=== PATIENT | male | born 1965 | race Native Hawaiian/Other Pacific Islander ===

== ENCOUNTER 2021-09-29 07:57 | Outpatient (REF) | payer MEDICAID, SELFPAY ==
--- NOTE | ~2021-09-29 | XR_ITS ---
EXAMINATION: XR KNEE, LEFT CLINICAL INFORMATION: Pain COMPARISON: None TECHNIQUE: Four views of the left knee. FINDINGS: The patella is well seated.. Mild patellofemoral spurring. No significant joint effusion. Mild spurring in the tibial spines. The medial lateral joint spaces are fairly well-preserved. XR/XR knee LT 4V IMPRESSION: Mild degenerative changes. No acute finding.
== END 2021-09-29 07:58 | disposition home or self-care (01) ==
LOC: HO.XRAY 07:57
PROVIDERS: Visit Provider Emergency Medicine
DX: M25.562 Pain in left knee (principal)
CPT/HCPCS: 73564

== ENCOUNTER 2021-11-11 07:08 | Outpatient (REF) | payer MEDICAID, SELFPAY ==
--- NOTE | ~2021-11-11 | XR_ITS ---
EXAMINATION: XR KNEE AP STANDING CLINICAL INFORMATION: Pain in knee. COMPARISON: None TECHNIQUE: AP bilateral standing view of the knees was obtained. FINDINGS: There is mild reduction in bilateral medial compartment joint space. The lateral compartment joint space is maintained normal. No bony erosive changes. There are no loose bodies. There is no abnormal soft tissue swelling. XR/XR knee standing BI IMPRESSION: Mild degenerative changes medial compartment both knees.
== END 2021-11-11 07:09 | disposition home or self-care (01) ==
LOC: HO.HOSX 07:08
PROVIDERS: Visit Provider Physician Assistant
DX: M54.16 Radiculopathy, lumbar region (principal); M25.561 Pain in right knee; M25.562 Pain in left knee
CPT/HCPCS: 73565; 99202

== ENCOUNTER → 2021-12-12 10:19 | Outpatient (BNVA) | payer MEDICAID, SELFPAY | PROVIDERS: PCP Emergency Medicine; Visit Provider Internal Medicine | DX: M54.16 Radiculopathy, lumbar region (principal) | CPT/HCPCS: 99202 ==

== ENCOUNTER 2022-01-06 09:44 | Outpatient (REF) | payer MEDICAID, SELFPAY ==
--- NOTE | ~2022-01-06 | XR_ITS ---
EXAMINATION: XR LUMBOSACRAL SPINE WITH OBLIQUES CLINICAL INFORMATION: Low back pain and left-sided sciatica COMPARISON: None TECHNIQUE: AP, both oblique, and lateral views of the lumbar spine. Lateral view of the lumbosacral junction. FINDINGS: There is curvature of the proximal lumbar spine to the right and lower lumbar spine to the left. Bone alignment is otherwise normal. No fracture or dislocation is seen. There is degenerative disc disease at L1-L2 and L4-L5. There is lower lumbar spine facet arthritis. No pars defect is seen. XR/XR lumbar spine 4V min IMPRESSION: Mild scoliosis and degenerative changes.
== END 2022-01-06 09:45 | disposition home or self-care (01) ==
LOC: HO.XRAY 09:44
PROVIDERS: PCP Internal Medicine; Visit Provider Internal Medicine
DX: M54.42 Lumbago with sciatica, left side (principal)
CPT/HCPCS: 72110

== ENCOUNTER 2022-01-23 09:00 | Outpatient (RCR) | payer MEDICAID, SELFPAY ==
[2021-12-30 10:09] VITALS: BP 157/87; PULSE 53
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
--- NOTE | 2022-02-06 12:40 | MHC.PT.DC ---
[facility] [place] Office [employer] Office [place] Office [address] Deonte Graham [address] [phone] F: [phone] F: [phone] F: [phone] F: [phone] Physical Therapy Discharge Report Diagnosis: RADICULOPATHY, LUMBAR REGION Date of Surgery: Date of Evaluation: 12/30/21 Date of Discharge: Treatments to Date: 4 Cancellations to Date: 2 No Shows to Date: 5 Discharge Status: Recommend MD Follow-up Visit Non-compliance Discharge Summary: Pt LAST SEEN ON 01/23/22. PER ASSESSMENT AT THAT SESSION :SOME SHAKING WITH ATTEMPT AT EXS (?), QUESTIONABLE FULL EFFORT WITH THEREX (WHILE PERFORMING R [place] SEEMED TO STRUGGLE UNTIL ASKED IF THIS WAS HIS GOOD SIDE (THEN PERFORMED WITH GREATER EASE). REPORTS CONTINUED PAIN L HIP AREA AFTER SESSION (MAYBE A LITTLE WORSE..ED RE MH/ICE). Pt HAD BEEN MOVING FROM [place] TO [place] SO HAD MISSED APPTS, THEN CANCELLED AFTER INJECTIONS BECAUSE OF INCREASE IN PAIN. MULTIPLE NO SHOWS. HAD BEGUN HOME EXERCISE PROGRAM WITH LIMITED BENEFIT Electronically signed by: RIGO VERDUGO PT Please sign and return to therapist. Thank you for your referral.
== END 2022-02-06 12:40 | disposition home or self-care (01) ==
LOC: HO.PT 09:00
PROVIDERS: PCP Emergency Medicine; Visit Provider Internal Medicine
DX: M54.16 Radiculopathy, lumbar region (principal)
CPT/HCPCS: 97110; 97140; 97162; 97530; 97535

== ENCOUNTER 2022-04-01 07:42 | Emergency (ER) | payer MEDICAID, SELFPAY ==
[2022-04-01 07:54] VITALS: BP 156/80; BP 166/76; PULSE 58; PULSE 76; RESP 16; TEMP 36.6; O2SAT 100; O2SAT 98; BMI 25.7
--- NOTE | 2022-04-01 08:07 | ED_ITS ---
HPI - General Adult General Chief complaint: Back Pain/Injury Stated complaint: backpain x 2yrs Time Seen by Provider: 04/01/22 07:48 Source: patient Mode of arrival: ambulatory Limitations: no limitations History of Present Illness HPI narrative: Patient is a 56 year old male presenting to the emergency department today with chronic back pain. Patient states that he has had back pain for over 2 years now and is having a left sided flare that radiates down his left leg. Patient denies any dizziness, lightheadedness, abdominal pain, nausea, vomiting, fever, chills, blurry vision, double vision, loss of vision, chest pain, difficulty breathing, shortness of breath, night sweats, pain with urination, increased urinary frequency, increased urinary urgency, blood in his urine or stool, syncope or a near syncopal episode, recent trauma or falls, bowel incontinence, bladder incontinence, bowel retention, bladder retention, or any other complaints at this time. Onset (ago): year(s) Location: back Radiation: extremity (left leg) Severity: mild Severity scale (1-10): 2 Quality: dull Pain Consistency: intermittent Relieving factors: none Exacerbating factors: none Associated symptoms: denies other symptoms Treatments prior to arrival: none Related Data Home Medications Medication Instructions Recorded Confirmed ibuprofen 400 mg tablet 400 mg PO Q6H PRN pain 12/12/21 12/12/21 Previous Rx's Medication Instructions Recorded acetaminophen 500 mg tablet 1,000 mg PO Q8H PRN pain #90 tabs 12/12/21 Allergies Allergy/AdvReac Type Severity Reaction Status Date / Time No Known Allergies Allergy Verified 12/12/21 10:33 Review of Systems Constitutional: Constitutional: Reports no additional constitutional complaints, Denies chills, Denies fever(s) and Denies night sweats Eyes: Eyes: Reports no additional eye complaints, Denies blurry vision, Denies change in vision, Denies diplopia, Denies eye discharge, Denies loss of vision and Denies eye pain ENT: Denies dizziness Cardiovascular: Cardiovascular: Reports no additional cardiovascular complaints, Denies chest pain, Denies lightheadedness, Denies Loss of Consciousness and Denies dyspnea Respiratory: Respiratory: Reports no additional respiratory complaints and Denies dyspnea Gastrointestinal: Gastrointestinal: Reports no additional gastrointestinal complaints, Denies abdominal pain, Denies melena, Denies hematochezia, Denies change in bowel habits and Denies change in stool character Genitourinary: Genitourinary: Reports no additional male genitourinary complaints, Denies hematuria, Denies oliguria, Denies difficulty urinating, Denies dysuria, Denies urinary frequency, Denies urinary hesitancy, Denies urinary incontinence and Denies urinary urgency Musculoskeletal: Musculoskeletal: Reports no additional musculoskeletal complaints, Reports back pain, Denies numbness and Denies tingling Neurologic: Denies dizziness, Denies loss of vision, Denies numbness and Denies tingling Psychiatric: Psychiatric: Reports no additional psychiatric complaints Endocrine: Endocrine: Reports no additional endocrine complaints Hematologic/Lymphatic: Hematologic/Lymphatic: Reports no additional hematologic/lymphatic complaints Allergic/Immunologic: Allergic/Immunologic: Reports no additional allergic/immunologic complaints PMFSH Past Medical History Attestation statement: The following information was validated with the patient. Source: old records reviewed Medical History Hypertension Social History Social History Advance Directives: Yes Advance Directives Information Provided: Yes Advance Directives on File: No Current occupational status: unemployed Physical Exam ED Vital Signs: Vital Signs - 24 hr 04/01/22 07:54 Temperature 97.8 F Pulse Rate 58 Respiratory Rate 16 Blood Pressure 156/80 H Pulse Oximetry 98 Oxygen Delivery Method Room Air BMI result Body Mass Index 25.7 Const General: cooperative, no acute distress, alert and awake Nutritional Appearance: well nourished Orientation/consciousness: patient oriented x3 Limitations: no limitations [facility] Head: Yes normal to inspection and Yes atraumatic Ears: hearing grossly normal bilaterally and external ears normal General nose exam: Normal external nose present, no nasal discharge noted and no epistaxis Face and sinus: Yes normal facial exam, No abrasion and No laceration Mouth: Normal oral and palatal mucosa present, no drooling and no muffled voice Eyes General: appearance normal, both eyes and all related structures Periorbital: periorbital findings normal Eyelids: Yes eyelids normal Conjunctivae: conjunctivae normal Pupils: Equal, round and reactive pupils present EOM: EOMs intact bilaterally Neck Neck: Yes normal visual inspection, Yes full ROM and Yes no lymphadenopathy Chest Chest palpation & inspection: normal inspection of the chest Resp Effort & Inspection: normal respiratory effort and able to speak in complete sentences Auscultation: clear to auscultation bilaterally Cardio Rate: regular rate Rhythm: regular rhythm GI Inspection: Yes normal to inspection General: Yes no CVA tenderness Back/Spine/Pelvis Back: no CVA tenderness Cervical Spine: normal cervical lordosis and cervical ROM normal Thoracic/Lumbar Spine: thoracic and lumbar spine normal to inspection and thoraco-lumbar ROM normal Neuro General: patient oriented x3 and moves all extremities Cranial nerves: Yes Equal, round and reactive pupils present Cognition (Neuro): normal cognition Motor exam (neuro): 5/5 motor strength present throughout Sensory Exam: Normal double simultaneous stimulation for sensation Coordination: ktbxfd-oj-zorq test normal Extrem General: Yes normal to inspection, Yes full ROM and Yes capillary refill normal Psych Appearance: grossly normal Mental Status: mental status grossly normal Affect: normal affect Attitude: cooperative Thought process: Normal thought process present Thought content: Normal thought content present Insight: Good insight present (Psych) Medical Decision Making MDM Narrative Medical decision making narrative: Patient is a 56 year old male presenting to the emergency department today with chronic back pain. Patient's physical exam was unremarkable. I explained my physical exam findings to the patient. I answered all questions asked by the patient. Patient received IM Toradol and PO Flexeril which he stated helped his symptoms significantly. I stressed the importance of the patient taking his medi cation as prescribed. I stressed the importance of the patient following up with his primary care provider. I stressed the importance of the patient returning to the emergency department immediately if his symptoms were to worsen or if he were to develop any dizziness, shortness of breath, difficulty breathing, chest pain, blurry vision, loss of vision, nausea, vomiting, abdominal pain, fever, chills, back pain, or any other complaints. Patient verbalized agreement and understanding with this treatment plan and discharge. Differential Diagnosis Differential Diagnosis: back pain, chronic back pain, sciatic nerve pain Medical Records Medical records reviewed: Yes I reviewed the patient's medical records. Discharge Plan Discharge Clinical Impression: Sciatica Patient Disposition: Home, Self-Care Instructions: Chronic Back Pain (DC) Additional Instructions: Follow up with your primary care provider. Return to the emergency department immediately if your symptoms worsen or if you develop any dizziness, shortness of breath, difficulty breathing, chest pain, blurry vision, loss of vision, nausea, vomiting, abdominal pain, fever, chills, back pain, or any other complaints. Prescriptions: No Action ibuprofen 400 mg tablet 400 mg PO Q6H PRN (Reason: pain) acetaminophen 500 mg tablet 1,000 mg PO Q8H PRN (Reason: pain) Qty: 90 6RF Referrals: [facility] [Provider Group] Jaocb Conn MD [Primary Care Provider] - Print Language: Turkmen
[2022-04-01] MEDS: Lidocaine 4 % Patch ADH..PATCH 1 PATCH TRANSDERMA (08:08)
[2022-04-01] MEDS: Cyclobenzaprine HCl 10 MG TABLET PO (08:17)
[2022-04-01] MEDS: Ketorolac Tromethamine 15 MG/ML VIAL IM (08:21)
== END 2022-04-01 08:27 | disposition home or self-care (01) ==
PROVIDERS: Emergency Provider Student in an Organized Health Care Education/Training Program; PCP Emergency Medicine
DX: M54.42 Lumbago with sciatica, left side (principal); M54.41 Lumbago with sciatica, right side; M79.605 Pain in left leg; Z79.899 Other long term (current) drug therapy
CPT/HCPCS: 96372; 99284; J1885

== ENCOUNTER → 2022-06-05 10:57 | Outpatient (BNVA) | payer MEDICAID, SELFPAY | PROVIDERS: PCP Emergency Medicine; Visit Provider Internal Medicine | DX: M54.16 Radiculopathy, lumbar region (principal); Z79.899 Other long term (current) drug therapy | CPT/HCPCS: 99212 ==

== ENCOUNTER 2022-06-15 15:22 | Outpatient (REF) | payer MEDICAID, SELFPAY ==
--- NOTE | ~2022-06-15 | MR_ITS ---
EXAMINATION: MR LUMBAR SPINE WITHOUT CONTRAST CLINICAL INFORMATION: 56-year-old with low back pain radiating to the left leg. Radiculopathy, lumbar region. COMPARISON: None TECHNIQUE: MRI of the lumbar spine was obtained using routine sequences without contrast. FINDINGS: Coronal Alignment: There is lumbar dextroscoliosis, convex to the right at L2 with slight lower lumbar levoconvexity at L4-L5. There is mild pnini-ap-fvwc lateral listhesis at L4-L5 and vfaa-cs-xvkao lateral listhesis at L3-L4. Slight ncvmh-fr-jkkr lateral listhesis at L1-L2. Sagittal Alignment: There is lordotic reversal centered at L2 with mild retrolisthesis at L2-L3 and L3-L4. Lumbosacral Junction: Normal. Five nonrib-bearing lumbar-type vertebral bodies. Vertebral Bodies: Normal height. Disc Spaces and Endplates: Nuti-qq-ihtbinxh degrees of intervertebral disc space height loss and disc desiccation are noted at L3-L4, L4-L5 and L5-S1 with ihpumtcu-vo-tqownk disc space height loss asymmetric to the left at L2-L3 and L1-L2 with disc desiccation. Multilevel anterior and paravertebral spondylosis is noted. Spinal Canal: No abnormal developmental findings. Bone Marrow: Diffusely heterogeneously hypointense bone marrow signal intensity noted throughout the osseous structures on T1-weighted imaging without marrow edema. Suggest correlation with CBC with differential and clinical history to exclude a marrow infiltrative process. Conus Medullaris: Terminates at L1. Morphology and signal is normal. Intradural Nerve Roots: Multilevel crowding of the intradural nerve roots consistent with multilevel spinal stenosis. L5-S1: Diffuse disc bulging noted asymmetric to the left with moderate bilateral facet arthropathy. No significant spinal canal stenosis. Moderate right-sided and iyjmdijc-oc-hhbigz left-sided neural foraminal stenosis is noted with impingement on the exiting left L5 nerve root. L4-L5: Diffuse disc bulging noted with flattening of the ventral dural sac, with ligamentum flavum thickening. Moderate right-sided and tfxv-pf-tvuryfly left-sided facet arthropathy noted with pzpy-da-llfxalai central spinal canal stenosis, with severe bilateral subarticular recess stenosis likely encroaching on the traversing L5 nerve roots bilaterally. Bilateral paravertebral disc-osteophyte complexes are also noted with a superimposed right-sided foraminal/extraforaminal disc herniation impinging on the exiting right L4 nerve root with vmjxulvr-qi-zhqzdm right-sided neural foraminal stenosis. There is moderate left-sided foraminal stenosis also noted. L3-L4: Disc bulging with a superimposed broad-based central to right subarticular disc herniation noted with mild caudal migration, with xnakoxhc-fe-zfuexk flattening of the ventral dural sac and a slightly prominent dorsal epidural fat pad with ligamentum flavum thickening and facet arthropathy, right more than left. Severe central spinal canal stenosis is noted with crowding of the intradural nerve roots, with severe right and moderate left subarticular recess stenosis impinging on the traversing right L4 nerve root. Superimposed left-sided foraminal/extraforaminal disc herniation abuts the exiting left L3 nerve root with moderate left-sided foraminal stenosis. Dzydlask-rc-paewrr right-sided neural foraminal stenosis also noted with impingement on the exiting right L3 nerve root. L2-L3: Disc bulging noted with a superimposed left subarticular to foraminal disc herniation, with flattening of the ventral dural sac asymmetric to the left. Mild right and moderate left-sided facet arthropathy noted with jzsjcdea-jd-oucpvo central canal stenosis and crowding of the intradural nerve roots. Severe subarticular recess stenosis noted, left more than right, likely encroaching on the traversing L3 nerve roots. Moderate right and severe left-sided foraminal stenosis is noted with impingement on the exiting left L2 nerve root. L1-L2: Diffuse disc bulging noted asymmetric to the left with mild flattening of the ventral dural sac, left more than right, and fbon-cz-exyzvexc facet arthropathy on the left with moderate left-sided neural foraminal stenosis and moderate left subarticular recess stenosis with no significant central canal stenosis. Paraspinal/Retroperitoneal: The paravertebral soft tissues appear unremarkable. There are multiple simple-appearing renal cysts, some of which are partially imaged. Limited evaluation.?No specific followup recommended based on the current ACR Best Practice Guidelines. MR/MR lumbar spine wo con IMPRESSION: 1. S-shaped lumbar scoliosis, with multilevel subluxations and lordotic reversal at L2 in the sagittal plane. 2. Extensive multilevel DDD and spondylosis, with multilevel disc bulging and disc herniations, as discussed by level above, with multilevel facet joint DJD and ligamentum flavum thickening. 3. Fjblkefg-mx-pebjjy spinal canal stenosis at L2-L3, severe spinal canal stenosis at L3-L4 and szpm-oj-erhwepff spinal canal stenosis at L4-L5 with multilevel severe lateral recess stenosis, as discussed above. 4. Multilevel wcqduswj-np-rhwxof bilateral neural foraminal stenosis with multilevel exiting and traversing nerve root impingement.
== END 2022-06-15 15:23 | disposition home or self-care (01) ==
LOC: HO.MRI 15:22
PROVIDERS: Visit Provider Internal Medicine
DX: M54.16 Radiculopathy, lumbar region (principal)
CPT/HCPCS: 72148

== ENCOUNTER → 2022-06-20 08:03 | Outpatient (BNVA) | payer MEDICAID, SELFPAY | PROVIDERS: PCP Emergency Medicine; Referring Provider Registered Nurse; Visit Provider Internal Medicine Cardiovascular Disease | DX: R07.2 Precordial pain (principal); R00.1 Bradycardia, unspecified; I10 Essential (primary) hypertension | CPT/HCPCS: 99202 ==

== ENCOUNTER → 2022-08-04 08:08 | Outpatient (REF) | payer MEDICAID, SELFPAY ==
--- NOTE | 2022-08-04 08:12 | ECG_ITS ---
Hook-up date: 2022-08-04 08:43:00 Duration: 47:59:00 Test Indications: UNSPEC. BRADYCARDIA Medications: 364244 QRS complexes 4379 Ventricular ectopics which represent 2 % of total QRS comp. 19 Supraventricular ectopics which represent <1 % of total QRS comp. * Paced QRS complexs which represent % of total QRS comp. VENTRICULAR ECTOPY 4379 Isolated 12 Bigeminal Cycles 0 Couplets 0 Runs 0 Beats in Runs * Beats LONGEST at * BPM at :: -- * Beats FASTEST at * BPM at :: -- SUPRAVENTRICULAR ECTOPY 19 Isolated 0 Couplets 0 Runs 0 Beats in Runs * Beats LONGEST at * BPM at :: -- * Beats FASTEST at * BPM at :: -- HEART RATES 44 MIN at 04:02:44 2022-08-06 74 AVG 135 MAX at 14:49:19 2022-08-04 LONGEST RR 1.5360 secs at 04:02:43 2022-08-06 S-T LEVELS Channel 1 - 128 mm at 08:43:00 2022-08-04 - 128 mm at 08:43:00 2022-08-04 Channel 2 - 128 mm at 08:43:00 2022-08-04 - 128 mm at 08:43:00 2022-08-04 Channel 3 - 128 mm at 02:80:21 -- - 128 mm at 02:80:21 Basic rhythm Normal sinus rhythm No long pause or profound bradycardia Frequent Premature ventricular complexes , 2% of total beats Patient did not report any symptoms in the diary Referred By: Christiano Arita Overread By: CHRISTIANO ARITA MD
--- NOTE | 2022-08-04 08:12 | CA_ITS ---
Acquisition Time: 2022-08-04 09:07:36 Total Exercise Time: 00:06:41 Test Indications: CP Medications: SEE CHART Protocol: DANIEL Max HR: 133 BPM 81% of Pred: 163 BPM Max BP: 166/068 mmHG Max Work Load: 8.0 METS Exercise stress test with exercise 6 min 41 sec of Daniel protocol, achieving 81% MPHR, 8 METs, with report of knee pain and request to stop, without anginal symptoms, with isolated PVC mostly at baseline which improved with exercise, with normotensive response to exercise, without EKG changes meeting criteria for ischemia at acheived workload. Test reviewed with Dr Coronel. Referred By: Christiano Arita Overread By: BETH PATTERSON
--- NOTE | 2022-08-04 08:12 | CA_ITS ---
Transthoracic Echocardiogram Patient (Last, First, Middle): Jasmeet Mirza, Gender: Male Date of : 1965 Age: 56 Procedure Date: 08/04/2022 Procedure Type: Transthoracic Echocardiogram Location: OP Height: 165.1 cm Weight: 64.41 kg BSA: 1.71 m2 Heart Rate: 62 bpm BP: 120 / 80 mmHg Sales Service Supervisor: TO Referring MD: Christiano Arita MD Symptoms: R07.2 - Precordial pain Study Quality: Fair Conclusions: - Normal left ventricular size, thickness, systolic function, and wall motion. The visually estimated ejection fraction is between 55-60%. Diastolic function is normal for age. - Normal right ventricular cavity size and systolic function. Findings Left Ventricle Normal left ventricular size, thickness, systolic function, and wall motion. The visually estimated ejection fraction is between 55-60%. Diastolic function is normal for age. Right Ventricle Normal right ventricular cavity size and systolic function. Atria Both atria are normal in size. There is no evidence of interatrial shunt by color Doppler. Aortic Valve Normal aortic valve structure and function. There is no aortic valve stenosis. There is no aortic valve regurgitation. Mitral Valve Normal mitral valve structure and function. There is no mitral valve regurgitation. There is no mitral valve stenosis. Pulmonic Valve The pulmonic valve is likely normal. Tricuspid Valve Normal tricuspid valve structure and function. There is no tricuspid valve regurgitation. Tricuspid regurgitation envelope is inadequate for calculation of right ventricular systolic pressure. Normal right atrial pressure. Venous The inferior vena cava is normal in size and collapses greater than 50% with inspiration. Pericardium/Pleural There is no evidence of pericardial effusion. Prior Study Comparison No prior study available for comparison. Measurements 2D Linear Measurements IVSd: 0.68 0.6-0.9/0.6-1.0 cm LVIDd: 5.37 3.9-5.3/4.2-5.9 cm LVIDd Index: 3.14 2.4-3.2/2.2-3.1 cm/m2 LVIDs: 3.80 2.0-3.6 cm LVPWd: 0.70 0.7-1.1 cm LA Diam: 2.70 2.7-3.8/3.0-4.0 cm LAIDs Index: 1.58 1.5-2.3 cm/m2 LV Mass: 158.66 67-162/88-224 g LV Mass Index: 92.78 43-95/49-115 g/m2 LVOT Diam: 2.00 3.0+(-)1.3 cm 2D Systolic Function EF 4C: 50.40 >55% EF 2C: 53.80 >55% EF BiP: 52.30 >55% Mitral Valve MV Pk E: 0.51 MV PK A: 0.42 MV Decel Time: 293.00 E/A: 1.20 E'Lateral: 11.10 E'Medial: 8.27 E/E' Med: 6.20 E/E' Lat: 4.60 PHT: 86.00 MVA PHT: 2.56 Decel Bath: 1.74 Aortic Valve AoV Pk Davide: 1.29 AoV Mn Davide: 0.92 AoV VTI: 0.26 AoV Pk Grad: 7.00 Aov Mn Grad: 4.00 YUNG Cont.VTI: 1.98 LVOT LVOT Pk Davide: 0.88 LVOT Mn Davide: 0.55 LVOT VTI: 0.16 LVOT Pk Grad: 3.00 LVOT Mn Grad: 1.00 LVOT Diam: 2.00 LVOT Area: 3.14 Diastolic Function MV Pk E: 0.51 MV Pk A: 0.42 E/A: 1.20 E'Medial: 8.27 E/E' Med: 6.20 E' Laterial: 11.10 E/E' Lat: 4.60 Right Ventricle TAPSE (mm): 19.20 TVS' Davide: 11.70 Tricuspid Valve TR Pk Davide: 1.37 TR Pk Grad: 8.00 RA Press: 3.00 RVSP: 11.00 Great Vessels Aorta Sinus of Valsalva: 3.29 2.0-3.[address] Ridge: 2.63 1.7-3.4 cm Ao Asc: 3.00 2.1-3.4 cm Updated in Other Vendor System with Status of Final Omar Coronel MD electronically signed on 08/06/2022 2:13:40 PM with status of Final
== END ==
LOC: HO.CARD 08:08
PROVIDERS: Visit Provider Internal Medicine Cardiovascular Disease
DX: R07.2 Precordial pain (principal); R00.1 Bradycardia, unspecified; I10 Essential (primary) hypertension
CPT/HCPCS: 93017; 93225; 93226; 93306

== ENCOUNTER → 2022-08-08 13:58 | Outpatient (BNVA) | payer MEDICAID, SELFPAY | PROVIDERS: PCP Emergency Medicine; Referring Provider Emergency Medicine; Visit Provider Nurse Practitioner Family | DX: R07.2 Precordial pain (principal); R00.1 Bradycardia, unspecified; I10 Essential (primary) hypertension; Z79.899 Other long term (current) drug therapy | CPT/HCPCS: 93005; 99212 ==

== ENCOUNTER → 2023-03-30 11:19 | Outpatient (BNVA) | payer MEDICAID, SELFPAY | PROVIDERS: PCP Emergency Medicine; Visit Provider Internal Medicine | DX: M54.16 Radiculopathy, lumbar region (principal); M48.061 Spinal stenosis, lumbar region without neurogenic claudication | CPT/HCPCS: 99212 ==

== ENCOUNTER 2023-04-25 06:01 | Outpatient (REF) | payer MEDICAID, SELFPAY ==
--- NOTE | ~2023-04-25 | FL_ITS ---
EXAMINATION: XR FLUOROSCOPY WITH IMAGES CLINICAL INFORMATION: Radiculopathy, lumbar region. COMPARISON: None available. TECHNIQUE: Fluoroscopy Supervised By: Dr. Avila. Fluoroscopy Time: 0.1 minutes. Cumulative Dose: 1.88 mGy. DAP: 0.199 Gycm2. Images: 2. FINDINGS: Images demonstrate posterior needle placement and epidural contrast injection of the lumbar spine. FL/FL guidance in treatment room IMPRESSION: Fluoroscopy guidance for pain management procedure.
== END 2023-04-25 06:02 | disposition home or self-care (01) ==
LOC: CF 06:01
PROVIDERS: Visit Provider Internal Medicine
DX: M54.16 Radiculopathy, lumbar region (principal); M48.061 Spinal stenosis, lumbar region without neurogenic claudication
CPT/HCPCS: 62323; J1040

== ENCOUNTER 2023-04-25 08:27 | Outpatient (AMB) | payer MEDICAID, SELFPAY ==
[2023-04-25 08:33] VITALS: BP 100/58; PULSE 54; RESP 14; O2SAT 99
--- NOTE | 2023-04-25 08:33 | MHC.OFFVIS ---
Intake Vital Signs 04/25/23 08:33 BP 100/58 L Blood Pressure Location Rt brachial Position Sitting Respiration 14 Pulse 54 Pulse Source Pulse Oximeter Pulse Oximetry (%) 99 Oxygen Delivery Method Room Air Intake Visit Reasons: LEFT PARASAGITTAL INTERLAMINAR L2,L3 CATHY Allergies No Known Allergies Allergy (Verified 04/25/23 08:33) HPI LEFT PARASAGITTAL INTERLAMINAR L2,L3 CATHY HPI Details Patient presents for scheduled procedure. Denies any recent cough, cold, infection, fever or other significant changes in medical history since last office visit. [facility] Medical History Chronic pain of left knee Hx of hepatitis C Hypertension Surgical History S/P appendectomy Status post laser cataract surgery of both eyes Social History Alcohol intake: unknown Tobacco use type: Cigarette Cigarettes Per Day: 6 Current occupational status: unemployed Physical Exam Vital Signs: Last Vital Signs Pulse 54 04/25/23 08:33 Resp 14 04/25/23 08:33 BP 100/58 L 04/25/23 08:33 Pulse Ox 99 04/25/23 08:33 Oxygen Delivery Method Room Air 04/25/23 08:33 Office Procedures Joint Injection/Drain Joint Injection/Drain Details: Interlaminar epidural steroid injection, L2/3, Left parasaggital After obtaining written consent, pre-procedure blood pressure and heart rate were stable and recorded in the nursing record. The patient was placed in the prone position. The lumbar area was widely prepped with chloraprep and draped in sterile fashion. Fluoroscopic guidance was used to identify the desired interlaminar space and for needle placement. Subcutaneous 0.5% lidocaine was used to anesthetize the skin overlying the target. A 20-gauge Celis needle was advanced to the epidural space using loss of resistance to contrast technique under fluoroscopic AP and contralateral oblique views. There was no evidence of heme or CSF and no paresthesias were elicited with needle placement. Confirmation of epidural needle placement was performed with 1cc of Isovue 300. Next 3 ml 0.5% lidocaine mixed with 80 mg methylprednisolone was administered epidurally with no pain elicited on injection. The needle tract tubing was then cleared with 1 ml of 0.5% lidocaine. The needle was removed, skin cleansed and a sterile bandage was applied. The patient tolerated the procedure well and no complications were encountered. Following the procedure the patient's vital signs were stable. The patient was discharged home in good condition with post-procedural instructions. Time Out: Immediately prior to the procedure, the following was verbally confirmed that there is a signed consent form and that the correct patient, planned procedure, site and side are consistent with documentation and that necessary equipment and/or blood products are available prior to the start of the case. Complications: none EBL: <5 cc Coding 90409 - Caudal/Lumbar Epidural/Interlaminar with fluoroscopy Procedure code (CPT) selection complete Results Reviewed Results Reviewed: 04/25/23 09:12 Lidocaine HCl 2 % MPF [Xylocaine 2 % MPF] 5 ml .ROUTE .STK-MED ONE methylPREDNISolone acetate [DEPO-MedroL] 80 mg .ROUTE .STK-MED ONE Assessment & Plan Assessment & Plan (1) Lumbar radiculopathy: Code(s): M54.16 - Radiculopathy, lumbar region (2) Lumbar spinal stenosis: Code(s): M48.061 - Spinal stenosis, lumbar region without neurogenic claudication Plan Patient is status post left parasagittal L2/3 CATHY. Patient tolerated procedure well and was discharged home in stable condition with discharge instructions. All questions were answered. We will follow-up via telephone or in clinic to assess response to therapy. A follow-up appointment was made during today's visit. Orders: Orders FL guidance in treatment room Today M48.061 - Spinal stenosis, lumbar region without neurogenic claudication, M54.16 - Radiculopathy, lumbar region Coding Level of Care Code Procedure Only Diagnoses Lumbar radiculopathy M54.16 Lumbar spinal stenosis M48.061 CPT Codes Coding - Joint 11: 75212 - Caudal/Lumbar Epidural/Interlaminar with fluoroscopy ([id number])
== END 2023-04-25 09:32 | disposition home or self-care (01) ==
LOC: HO.PMCPRC 08:28
PROVIDERS: PCP Emergency Medicine; Visit Provider Internal Medicine
DX: M54.16 Radiculopathy, lumbar region (principal)
CPT/HCPCS: 62323

== ENCOUNTER 2023-05-25 08:56 | Outpatient (AMB) | payer MEDICAID, SELFPAY ==
[2023-05-25 09:03] VITALS: BP 138/64; RESP 16; O2SAT 97; BMI 22.7
--- NOTE | 2023-05-25 09:03 | MHC.OFFVIS ---
Intake Vital Signs 05/25/23 09:03 Height 5 ft 4 in Weight 132 lb 2 oz BMI 22.7 BP 138/64 Blood Pressure Location Lt brachial Position Sitting Respiration 16 Pulse Oximetry (%) 97 Oxygen Delivery Method Room Air Intake Visit Reasons: LEFT PARASAGITTAL INTERLAMINAR L2,L3 CATHY Allergies No Known Allergies Allergy (Verified 05/25/23 09:03) HPI LEFT PARASAGITTAL INTERLAMINAR L2,L3 CATHY HPI Details 57-year-old female presenting today for follow-up after left parasagittal interlaminar L2-3 CATHY. A certified sample prep technician was present during the visit. The patient reports only 1 day of relief following the procedure. Past procedure: 04/25/23: Interlaminar epidural steroid injection, L2/3, Left parasaggital: Pain relief for 1 day before return of symptoms PFSH Medical History Chronic pain of left knee Hx of hepatitis C Hypertension Surgical History S/P appendectomy Status post laser cataract surgery of both eyes Social History Alcohol intake: unknown Tobacco use type: Cigarette Cigarettes Per Day: 6 Current occupational status: unemployed Review of Systems Const All systems reviewed & are unremarkable except as noted in HPI and below Physical Exam Vital Signs: Last Vital Signs Resp 16 05/25/23 09:03 BP 138/64 05/25/23 09:03 Pulse Ox 97 05/25/23 09:03 Oxygen Delivery Method Room Air 05/25/23 09:03 BMI result Body Mass Index 22.7 General: Appears afebrile. Alert and oriented. Mood and affect appropriate. Follows and participates in conversation appropriately. Respiratory effort is unlabored. Able to transition from sit to stand unassisted. Ambulates with bilaterally normal heel strike and toe off. Results Reviewed Results Reviewed: No imaging is available for review. Assessment & Plan Assessment & Plan (1) Lumbar spinal stenosis: Code(s): M48.061 - Spinal stenosis, lumbar region without neurogenic claudication Plan Once again I reviewed the MRI findings with the patient indicating severe spinal stenosis at multiple levels. We had previously discussed referral to surgery for open decompression but the patient wanted to trial an epidural steroid injection to see if he could get any meaningful relief. Unfortunately the CATHY did not give him much relief so he is amenable to seeking neurosurgical opinion. A referral was provided to Dr. Cárdenas. I encouraged him to avoid any heavy lifting, especially if it involves bending over. If pain continues to persist post-surgery, we will follow-up as needed for consideration of spinal cord stimulation. Scribed for Dr. Avila by Billy Adams, medical administrative specialist, on 05/25/2023. I, Dr. Avila, have personally reviewed and agree with the information entered by the scribe. Orders: Referrals Neurosurgery Referral M48.061 - Spinal stenosis, lumbar region without neurogenic claudication Coding Level of Care Code Est Pt Level 3 (93555) Diagnoses Lumbar spinal stenosis M48.061
== END 2023-05-25 09:26 | disposition home or self-care (01) ==
PROVIDERS: PCP Emergency Medicine; Visit Provider Internal Medicine
DX: M48.061 Spinal stenosis, lumbar region without neurogenic claudication (principal)
CPT/HCPCS: 99213

== ENCOUNTER → 2023-05-25 08:56 | Outpatient (BNVA) | payer MEDICAID, SELFPAY | PROVIDERS: PCP Emergency Medicine; Visit Provider Internal Medicine | DX: M48.061 Spinal stenosis, lumbar region without neurogenic claudication (principal) | CPT/HCPCS: 99212 ==

== ENCOUNTER 2023-08-31 09:35 | Outpatient (REF) | payer MEDICAID, SELFPAY ==
--- NOTE | ~2023-08-31 | XR_ITS ---
EXAMINATION: XR LUMBOSACRAL SPINE WITH OBLIQUES CLINICAL INFORMATION: Spinal stenosis. COMPARISON: Radiographs dated 01/06/2022. TECHNIQUE: AP and lateral (neutral, flexion and extension) views of the lumbosacral spine are submitted.. FINDINGS: Bony mineralization is normal. There is a mild upper lumbar dextroscoliosis. At L2-L3, there is vacuum disc phenomenon and marked leftward disc space narrowing. At L4-L5, there is marked rightward disc space narrowing. There is mild posterior disc space narrowing at L5-S1. No acute fracture or spondylosis is seen. There is multi-level lumbar spondylosis. The posterior elements are intact. There is facet arthropathy, most pronounced at L4-L5 and L5-S1. The paravertebral soft tissues are unremarkable. There are right upper pelvic surgical clips. XR/XR lumbar spine 4V min IMPRESSION: 1. There is multi-level lumbar degenerative disc disease, spondylosis and facet arthropathy. Degenerative disc disease is most pronounced at L2-L3 and L4-L5, where it is moderately severe. 2. There is a mild upper lumbar dextroscoliosis.
== END 2023-08-31 09:36 | disposition home or self-care (01) ==
LOC: HO.HOSX 09:35
PROVIDERS: PCP Emergency Medicine; Referring Provider Internal Medicine; Visit Provider Physician Assistant
DX: M48.061 Spinal stenosis, lumbar region without neurogenic claudication (principal)
CPT/HCPCS: 72110; 99212

== ENCOUNTER 2023-08-31 09:35 | Outpatient (AMB) | payer MEDICAID, SELFPAY ==
--- NOTE | 2023-08-31 10:23 | A.SPINEOV_ITS ---
Intake Intake Visit Reasons: low back pain Intake Note: Mr. Mirza is here today c/o low back pain. MRI done @ [facility] [place]. Care Assistant Required: No Allergies No Known Allergies Allergy (Verified 05/25/23 09:03) Assessment & Plan Assessment & Plan (1) Lumbar spinal stenosis: Code(s): M48.061 - Spinal stenosis, lumbar region without neurogenic claudication Plan Dear Dr Avila, Thank you for referring MR Mirza to our office today. He is a 57-year-old gentleman who presents for evaluation of a chronic low back pain which goes down his left leg. It has been going on for over 5 years, has been getting steadily worse. It is aggravated with standing and walking he gets better when he sits. He has tried physical therapy, Motrin, Tylenol, nabumetone, cortisone injections and nothing seems to work. He describes the leg pain is going down from his low back into his ?whole leg?. By this he means it runs not only down the back of the leg but into the front as well as down into the calf and foot. He points to the top of the foot when I specifically ask any particular part. He is here today to be evaluated after failure of conservative treatment in the setting of severe spinal stenosis and degenerative disc disease with scoliosis. 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 He tells me this was treated with an IV medication and he has been hepatitis free since that time. He has not used IV drugs in over 20 years. He has a history of an appendectomy, high cholesterol, hypertension. Denies any heart attacks, strokes, kidney disorders, bleeding disorders. Social hx: He does smoke marijuana almost daily, does not smoke cigarettes or use any hard drugs Medications: Amlodipine, atorvastatin, cyclobenzaprine, diclofenac, vitamin-D, nabumetone Allergies: None Physical exam: Intact strength and reflexes, gait slightly antalgic. Imaging review: [place] MRI shows he has moderate to severe stenosis at L2-3 and L3-4. He has moderate stenosis at L4-5. He has mild L5 foraminal stenosis. He has a scoliotic curvature seen on his AP x-ray extending from L2-5. Impression: 57-year-old gentleman presents with chronic low back pain going down to his left leg, what he describes as his whole leg including the back of the leg, thigh and even into his calf and foot when he stands and walks. The back pain and the leg pain are severely affecting his quality of life and he has failed conservative management to this point. He is looking for some kind of definitive option. He does have severe degenerative disc disease from L2-L5 with significant stenosis at multiple levels and what looks like a scoliotic curvature on the AP view of the x-ray. I will send him for flexion-extension views in the upright position. Typically this is something Dr. Cárdenas would treat with spinal fusion to correct the scoliosis and indirectly decompress the central canal. Usually this would be through an oblique lumbar interbody approach or trans Kambin approach. We briefly went over the risks, benefits of this surgery and the recovery. I would like to review his imaging with Dr. Cárdenas I will get back to the patient with the final plan Thank you for allowing us to care for your patient. The total time spent with this visit with this patient was 45 minutes reviewing history, physical exam, lumbar imaging review, and implementation of treatment plan or further diagnostic testing Augie Cárdenas MD,PhD [facility] Orders: Orders XR lumbar spine 4V min Today M48.061 - Spinal stenosis, lumbar region without neurogenic claudication Coding Level of Care Code New Pt Level 4 (46967) Diagnoses Lumbar spinal stenosis M48.061
== END 2023-08-31 10:40 | disposition home or self-care (01) ==
PROVIDERS: PCP Emergency Medicine; Referring Provider Internal Medicine; Visit Provider Physician Assistant
DX: M48.061 Spinal stenosis, lumbar region without neurogenic claudication (principal)
CPT/HCPCS: 99204

== ENCOUNTER → 2023-11-13 13:40 | Outpatient (BNV) | payer MEDICAID, SELFPAY | PROVIDERS: Admitting Provider Neurological Surgery; PCP Internal Medicine; Visit Provider Internal Medicine Cardiovascular Disease | DX: R00.1 Bradycardia, unspecified (principal); R94.31 Abnormal electrocardiogram [ECG] [EKG] | CPT/HCPCS: 93010 ==

== ENCOUNTER 2023-11-28 06:23 | Inpatient (IN) | payer MEDICAID, SELFPAY ==
--- NOTE | 2023-11-13 | ECG_ITS ---
Test Reason : PREOP Blood Pressure : / mmHG Vent. Rate : 054 BPM Atrial Rate : 054 BPM P-R Int : 166 ms QRS Dur : 116 ms QT Int : 416 ms P-R-T Axes : 080 067 053 degrees QTc Int : 394 ms Sinus bradycardia Minimal voltage criteria for LVH, may be normal variant ( Sokolow-Salinas ) Nonspecific ST and T wave abnormality Abnormal ECG No previous ECGs available Referred By: Yi Byrnes Electronically Signed By:STARR WILLIS MD
[2023-11-13 12:55] VITALS: BP 115/55; PULSE 61; RESP 20; O2SAT 97; BMI 22.8
--- NOTE | 2023-11-13 13:09 | HO.ANESPROP2 ---
Documented by User: Yi Byrnes NP 11/27/23 08:23 HPI - Anesthesia Eval Consult details Narrative: 58yo M for L2-5 Oblique Lumbar Interbody Fusion, 11/28/23 No recent illness No CP/SOB with walking flat. Mild DOUGLASS with stairs [place] [facility] [place] all [place]. No f/u needed. PMFSH Active Problems Active Problems: All Active Problems (Updated 11/13/23 @ 12:44 by Gill Murphy RN) Lumbar spinal stenosis (Acute) Sinus bradycardia (Acute) Precordial chest pain (Acute) Lumbar radiculopathy (Acute) Hypertension (Acute) Status post laser cataract surgery of both eyes (Acute) S/P appendectomy (Acute) Hx of hepatitis C (Acute) Chronic pain of left knee (Acute) Past Medical History Medical History (Updated 11/13/23 @ 12:44 by Gill Murphy RN) Arthritis Precordial chest pain Hx of hepatitis C Chronic pain of left knee Hypertension Family History Family history of problems with anesthesia: No Surgical History Surgical History (Updated 11/13/23 @ 12:46 by Gill Murphy RN) Status post laser cataract surgery of both eyes S/P appendectomy History of Problems with Anesthesia: No Social History Social History Household Members Other:: niece Are you a primary health and social care teacher to a significant other at home: No Do you presently have visiting nurse or other home services: No Alcohol intake: unknown Patient Tobacco Use Status: Former Tobacco user Tobacco use type: Cigarette Cigarettes Per Day: 2 Years Smoked: 38 Use of substances other than those prescribed or required for medical reasons: Yes Substance Use Frequency: Daily Have you been hit, kicked, punched, or otherwise hurt by someone within the past year? If so, by whom?: No Are you DNR?: No Advance Directives: No (liliane Mathew is primary contact) Advance Directives Information Provided: Yes Advance Directives on File: No Recently lost weight without trying: No Eating poorly because of decreased appetite: No Nutrition Risks: No Nutritional Risk Poor oral hygiene: Yes (missing & broken teeth-denies loose teeth) Current occupational status: unemployed Meds Allergies Allergy/AdvReac Type Severity Reaction Status Date / Time No Known Allergies Allergy Verified 11/28/23 06:09 Home Medications Medication Instructions Recorded Confirmed Last Taken Type amlodipine 5 mg tablet 5 mg PO QAM 06/05/22 11/28/23 11/27/23 History cyclobenzaprine 5 mg tablet 5 mg PO TID PRN muscle spams 06/05/22 11/28/23 11/25/23 History baclofen 20 mg tablet 20 mg PO TID 11/13/23 11/28/23 11/27/23 21:00 History brimonidine 0.2 % eye drops 1 drp TID 11/13/23 11/28/23 11/27/23 History cholecalciferol (vitamin D3) 50 50 mcg PO QAM 11/13/23 11/28/23 11/27/23 History mcg (2,000 unit) capsule (Vitamin D3) dorzolamide 22.3 mg-timolol 6.8 1 drp BID 11/13/23 11/28/23 11/27/23 History mg/mL eye drops gabapentin 600 mg tablet 600 mg PO TID 11/13/23 11/28/23 11/26/23 History latanoprost 0.005 % eye drops 1 drp BEDTIME 11/13/23 11/28/23 11/27/23 History pravastatin 40 mg tablet 40 mg PO QPM 11/13/23 11/28/23 11/27/23 History Exam Height,Weight and Vital Signs: Height 5 ft 4 in Weight 60.328 kg Last Vital Signs Pulse 61 11/13/23 12:55 Resp 20 11/13/23 12:55 BP 115/55 L 11/13/23 12:55 Pulse Ox 97 11/13/23 12:55 O2 Del Method Room Air 11/13/23 12:55 Pertinent Lab Results Pertinent Lab Results: Lab Results 11/13/23 11/13/23 Range/Units 13:45 13:46 WBC 8.8 (4.8-10.8) X10*3/uL RBC 4.48 L (4.60-5.80) X10*6/uL Hgb 13.5 L (14.0-18.0) g/dl Hct 40.8 L (42.0-52.0) % MCV 91.1 (80.0-98.0) fL MCH 30.1 (27.0-33.0) pg MCHC 33.1 (31.0-36.0) g/dl RDW 14.5 (11.0-16.0) % Plt Count 229 (160-400) X10*3/uL MPV 10.7 (9.4-12.4) fL Absolute Nucleated RBC 0.000 (0.0-0.012) X10*3/uL Nucleated RBC % (auto) 0.0 (0.0-0.2) /100WBC Sodium 142 (135-145) mmol/L Potassium 4.3 (3.3-5.1) mmol/L Chloride 107 (96-108) mmol/L Carbon Dioxide 28 (22-29) mmol/L Anion Gap 11 L (12-20) BUN 12 (9-16) mg/dL Creatinine 1.15 (0.5-1.4) mg/dL Estim Creat Clear Calc 57.9 Estimated GFR > 60 Random Glucose 90 (60-115) mg/dL Calcium 9.3 (8.4-10.2) mg/dL Blood Type O Positive Antibody Screen NEGATIVE Narrative Narrative: EKG 11/13/23 Vent. Rate : 054 BPM Atrial Rate : 054 BPM P-R Int : 166 ms QRS Dur : 116 ms QT Int : 416 ms P-R-T Axes : 080 067 053 degrees QTc Int : 394 ms Sinus bradycardia Minimal voltage criteria for LVH, may be normal variant ( Sokolow-Salinas ) Nonspecific ST and T wave abnormality Abnormal ECG No signif change from 2021 Airway Mallampati Class: II TM Dist: >3cm Neck ROM: Full Loose/Missing/Broken Teeth: Yes (Left lower molar broken) Heart: RRR Lungs: CTAB Assessment and Plan Assessment Anesthesia Assessment: Anesthesia Plan Discussed, Smoking Cess. Discussed and PAT Visit Final Anesthetic Review Family History of Problems with Anesthesia: No History of Problems with Anesthesia: No Documented by User: Amando Edwards MD 11/28/23 07:03 [facility] Past Medical History Medical History (Updated 11/13/23 @ 12:44 by Gill Murphy RN) Arthritis Precordial chest pain Hx of hepatitis C Chronic pain of left knee Hypertension Surgical History Surgical History (Updated 11/13/23 @ 12:46 by Gill Murphy RN) Status post laser cataract surgery of both eyes S/P appendectomy Social History Social History Household Members Other:: niece Are you a primary health and social care teacher to a significant other at home: No Do you presently have visiting nurse or other home services: No Alcohol intake: unknown Patient Tobacco Use Status: Former Tobacco user Tobacco use type: Cigarette Cigarettes Per Day: 2 Years Smoked: 38 Use of substances other than those prescribed or required for medical reasons: Yes Substance Use Frequency: Daily Have you been hit, kicked, punched, or otherwise hurt by someone within the past year? If so, by whom?: No Are you DNR?: No Advance Directives: No (liliane Mathew is primary contact) Advance Directives Information Provided: Yes Advance Directives on File: No Recently lost weight without trying: No Eating poorly because of decreased appetite: No Nutrition Risks: No Nutritional Risk Poor oral hygiene: Yes (missing & broken teeth-denies loose teeth) Current occupational status: unemployed Meds Allergies Allergy/AdvReac Type Severity Reaction Status Date / Time No Known Allergies Allergy Verified 11/28/23 06:09 Home Medications Medication Instructions Recorded Confirmed Last Taken Type amlodipine 5 mg tablet 5 mg PO QAM 06/05/22 11/28/23 11/27/23 History cyclobenzaprine 5 mg tablet 5 mg PO TID PRN muscle spams 06/05/22 11/28/23 11/25/23 History baclofen 20 mg tablet 20 mg PO TID 11/13/23 11/28/23 11/27/23 21:00 History brimonidine 0.2 % eye drops 1 drp TID 11/13/23 11/28/23 11/27/23 History cholecalciferol (vitamin D3) 50 50 mcg PO QAM 11/13/23 11/28/23 11/27/23 History mcg (2,000 unit) capsule (Vitamin D3) dorzolamide 22.3 mg-timolol 6.8 1 drp BID 11/13/23 11/28/23 11/27/23 History mg/mL eye drops gabapentin 600 mg tablet 600 mg PO TID 11/13/23 11/28/23 11/26/23 History latanoprost 0.005 % eye drops 1 drp BEDTIME 11/13/23 11/28/23 11/27/23 History pravastatin 40 mg tablet 40 mg PO QPM 11/13/23 11/28/23 11/27/23 History Exam Airway Mallampati Class: II Assessment and Plan Assessment Anesthesia Assessment: Chart Reviewed Final Anesthetic Review NPO: Yes ASA Class: II Final Preanesthetic Review: Meds/Allgs Chart Reviewed, Consent Obtained/Reviewed and Anes Risks/Benef Reviewed Patient Risk: Intermediate Procedure Risk: Intermediate Anesthetic Plan Anesthetic Plan: GA Disposition: Standard PACU
[2023-11-13 14:13] LABS: Hematocrit 40.8 % (42.0-52.0); Hemoglobin 13.5 g/dl (14.0-18.0); Mean Corpuscular HGB Conc 33.1 g/dl (31.0-36.0); Mean Corpuscular Hemoglobin 30.1 pg (27.0-33.0); Mean Corpuscular Volume 91.1 fL (80.0-98.0); Mean Platelet Volume 10.7 fL (9.4-12.4); Platelet Count 229 X10*3/uL (160-400); Red Blood Count 4.48 X10*6/uL (4.60-5.80); Red Cell Distribution Width 14.5 % (11.0-16.0); White Blood Count 8.8 X10*3/uL (4.8-10.8)
[2023-11-13 14:43] LABS: Anion Gap 11 (12-20); Blood Urea Nitrogen 12 mg/dL (9-16); Calcium 9.3 mg/dL (8.4-10.2); Carbon Dioxide 28 mmol/L (22-29); Chloride 107 mmol/L (96-108); Creatinine Clr Calc Pharmacy 57.9; Estimated Glomerular Filt Rate > 60; Glucose Random 90 mg/dL (60-115); Potassium 4.3 mmol/L (3.3-5.1); Sodium 142 mmol/L (135-145)
[2023-11-28] VITALS (16 sets, daily range): BP systolic 130–162; BP diastolic 70–95; PULSE 54–86; RESP 10–20; TEMP 36.2–37.3; O2SAT 94–100; BMI 22.8
--- NOTE | ~2023-11-28 | FL_ITS ---
EXAMINATION: XR FLUOROSCOPY WITH IMAGES CLINICAL INFORMATION: L2-L5 oblique lumbar interbody fusion. COMPARISON: Radiographs lumbar spine 01/06/2022. TECHNIQUE: Fluoroscopy Supervised By: Dr. Romel Cárdenas Fluoroscopy Time: 1.7 minutes. Cumulative Dose: 64.3 mGy. DAP: 15.0 Gy-cm2. Images: 3. FINDINGS: Images demonstrate posterior fusion with pedicular screws from L2 through L5 with interbody devices in place. Please see Dr. Romel Cárdenas' report for full details. FL/FL guidance in OR IMPRESSION: Fluoroscopy and spot films provided during lumbar fusion.
[2023-11-28] MEDS: Gabapentin 300 MG CAPSULE PO (06:24)
[2023-11-28] MEDS: methocarbamoL 750 MG TABLET PO (06:24)
[2023-11-28] MEDS: Lactated Ringers 1,000 ML 100 ML IVCONT (06:29)
--- NOTE | 2023-11-28 07:00 | P.HPSUR_ITS ---
Pre-Procedural Eval Section A - 24 Hr Update-Section A only Date of Service: 11/28/23 Section B - Complete if H&P > 30 days Chief Complaint: s/p /2-5 OLIF Allergies: Allergies Allergy/AdvReac Type Severity Reaction Status Date / Time No Known Allergies Allergy Verified 11/28/23 06:09 Review of Systems Sugical H&P ROS: Negative: Constitution, Cardiovascular, Respiratory, Neurol ogical, Psychiatric, Hem-Onc, Allergic/Immunologic, Gastrointestinal, Genitourinary, Musculoskeletal, Integumentary, Endocrine and Eyes/Ears/Nose/Throat Exam Surgical H&P Exam: Not Evaluated: HEENT, Not Evaluated: Heart, Not Evaluated: Lungs, Not Evaluated: Extremities, Not Evaluated: Abdomen, Not Evaluated: Skin and Not Evaluated: Neurological Plan Diagnosis/Plan: Unchanged I have reviewed the history and physical and performed a pertinent physical examination on my patient. No changes have occurred unless specified. Plan remains the same, L2-L5 OLIF Time Spent With Patient Time: Total time managing care of this patient today __7__ minutes.
--- NOTE | 2023-11-28 11:49 | P.OP_ITS ---
Operative Note Operative Note Date of Service: 11/28/23 Narrative: Preop Diagnosis: 1.) Lumbar degenerative scoliosis; back pain Procedure: L2-3, L3-4 and L4-5 discectomy, arthrodesis and implantation cage through an anterolateral, retroperitoneal approach; posterior instrumented fusio n L2-L5; allograft Consent Informed Consent was obtained for this operation. I have explained the nature, purpose and benefits of the operation. I have discussed the risks and benefit of the operation including possible complications or adverse events with patient/family. Alternative(s) were discussed with the patient with their relative benefits and risks as well as the consequences of not accepting the operation were included in obtaining consent. Surgeon: BOBBI CERDA MD, PHD Procedure Assisted By: TATIANA Delgadillo Description of Procedure This 58-year-old male presented with excruciating back pain. Imaging shows a lumbar degenerative scoliosis that progresses with standing x-rays. The patient was offered an oblique lumbar interbody fusion L2-L5 to correct the scoliosis. The procedure complications were explained. The patient was consented. The patient was brought to the operating room and endotracheally intubated. The patient was turned in a lateral position with the left side up. Prep and drape was done followed by timeout. A small incision was made in the left lower abdominal quadrant. The muscle fascia was opened after which the 3 muscle layer was split to enter the retroperitoneal space. Dilators were docked in the anterior one third of the L4-5 disc space followed by a retractor. The retractor was opened. The L4-5 disc space was exposed. An annulotomy was done after which an elevator Manning was used to release the disc material from its endplates and to perforate the contralateral side. A partial discectomy was done. An 8mm height trial implant was inserted. The discectomy was completed. The endplates were prepared. An 10 x 50 mm with 0 degree lordosis 4 web cage filled with allograft was inserted into the disc space under fluoroscopic guidance. The retractor was moved towards the L3-4 disc space were similar procedure was done. When the diskectomy was complete a 8 mm x 45 and 0 degree lordosis cage filled with allograft into the disc space. This led to a partial resolution of scoliosis. Finally the L2-3 level was addressed. This level was significantly collapsed. And therefore had to use a 7 mm trial implant to open up the disc space and the contralateral annulus. Eventually, after the diskectomy was completed, a 8 mm x 45 mm inserted degree lordosis cage filled with allograft was inserted into the L2-3 disc space under fluoroscopic guidance to further improve the scoliotic curvature. The retractor was removed. Hemostasis was done. The incision was closed in 2 layers. Steri-Strips used to approximate incision. An OpSite with Tegaderm was used to cover the incision. This marked first part of the procedure. The patient was turned prone on the Fahad spine table. 2C arms were installed for fluoroscopy. Prep and drape was done followed by a second timeout. Following steps were taken for pedicle screw placement. First a paramedian incision was made lateral from the targeted pedicle. The muscle fascia was opened after which the muscle layer was split bluntly to expose the posterolateral gutter. A pediguard tap was used to create a transpedicular trajectory into the vertebral body. A K wire was placed. A specially designed instrument was advanced over the K wire to decorticate the posterolateral gutter in preparation for the posterolateral fusion. A pedicle screw was advanced over the K wire and the K wire was removed. The steps were done for the bilateral L2, L3, L4 and L5 pedicles. A total of 8 screws were placed with a diameter of 6.5 x 45 mm. Pedicle screws were connected with 110 mm omega bilaterally and locked down with locking caps. The left L5 tower broke during locking of the omega and therefore the left L5 pedicle screw was replaced with a 7.5 x 45 mm screw after which the omega was inserted again and locked our locking caps. The extension towers were removed. The posterolateral gutter was filled with allograft to complete the posterolateral L2-L5 fusion Hemostasis was done and the incision was closed in 2 layers. Steri-Strips were used to approximate the incision. An OpSite were taken and was used to cover the incision. All sponge and needle counts were correct. Patient was extubated and transferred in stable is to recovery room. Anesthesia: General Estimated Blood Loss (ml): 30 ml Duration of Surgery: 3 hours 15 Complications: None Postoperative Plan: Admit to inpatient for observation
[2023-11-28] MEDS: HYDROmorphone HCl 0.5 MG/0.5 ML SYRINGE IVPUSH ×3 (12:30→13:15)
[2023-11-28] MEDS: Baclofen 20 MG TABLET PO ×2 (13:48→19:17)
[2023-11-28] MEDS: Gabapentin 600 MG TABLET PO ×2 (13:48→19:08)
[2023-11-28] MEDS: oxyCODONE HCl Immed Release 5 MG TABLET 10 MG PO ×3 (13:48→22:48)
[2023-11-28] MEDS: Cyclobenzaprine HCl 5 MG TABLET PO ×2 (13:48→22:47)
[2023-11-28] MEDS: Acetaminophen 325 MG TABLET 975 MG PO ×2 (13:53→19:15)
[2023-11-28] MEDS: ceFAZolin Sodium/Dextrose,Iso 2 GM/50 ML PIGGYBACK IV (13:54)
[2023-11-28] MEDS: Docusate Sodium 100 MG CAPSULE PO (19:08)
[2023-11-28] MEDS: Brimonidine Tartrate 0.2% Oph 5 ML BOTTLE 1 DROP EYE-BOTH (19:08)
[2023-11-28] MEDS: Pravastatin Sodium 40 MG TABLET PO (19:08)
[2023-11-28] MEDS: Latanoprost 0.005 % Ophth Sol 2.5 ML DROPS 1 DROP EYE-BOTH (19:09)
[2023-11-28] MEDS: Dorzolamide/Timolo 2.23%/0.68% 10 ML DRBTL 1 DROP EYE-BOTH (19:09)
[2023-11-28] MEDS: HYDROmorphone HCl 1 MG/ML SYRINGE IVPUSH (21:36)
[2023-11-29] MEDS: HYDROmorphone HCl 1 MG/ML SYRINGE IVPUSH ×2 (01:51→04:52)
[2023-11-29] MEDS: Acetaminophen 325 MG TABLET 975 MG PO ×2 (03:06→08:31)
[2023-11-29 03:07] VITALS: PULSE 77; RESP 16; TEMP 37.2; O2SAT 99
[2023-11-29] MEDS: oxyCODONE HCl Immed Release 5 MG TABLET 10 MG PO ×2 (03:07→07:41)
[2023-11-29 04:01] VITALS: BP 180/78
[2023-11-29 04:05] VITALS: BP 164/76
[2023-11-29 07:46] VITALS: BP 155/67; PULSE 93; RESP 16; TEMP 36.6; O2SAT 95
[2023-11-29] MEDS: Gabapentin 600 MG TABLET PO (08:31)
[2023-11-29] MEDS: Baclofen 20 MG TABLET PO (08:31)
[2023-11-29] MEDS: Cholecalciferol (Vitamin D3) 25 MCG TABLET 50 MCG PO (08:31)
[2023-11-29] MEDS: amLODIPine Besylate 5 MG TABLET PO (08:31)
[2023-11-29] MEDS: Docusate Sodium 100 MG CAPSULE PO (08:32)
[2023-11-29] MEDS: ondansetron HCL 4 MG/2 ML VIAL IVPUSH (08:37)
--- NOTE | 2023-11-29 09:10 | MHC.CM.PN ---
Addendum entered by Tiff Horvath RN 11/29/23 09:43: Patient is medically cleared for dc home self care. Original Note: CM met with patient at bedside, plastic and reconstructive surgeon assisting. Patient is from home w/ niece. Functionally independent. No services. States he might have a walker at home, but does not use it. PCP: Farida Cervantes MD HCP: Patient does not have a HCP. CM provided education and offered assistance. Patient declined. DP: Per PT eval, outpatient PT. Home self care. Family to transport. CM will continue to follow.
--- NOTE | 2023-11-29 09:34 | HO.NEURO.PN ---
Neurosurgery Operative Note Date of Service: 11/29/23 Narrative: Postop day 1., L2-5 oblique lumbar interbody fusion Patient reporting back discomfort last night but it seems to be doing better today. Denies any pain radiating down his legs, no tingling or numbness. He has tolerating a diet, voiding okay thus far. Afebrile, vital signs stable Physical exam: Patient is awake alert oriented no acute distress, full strength of bilateral lower extremities, abdomen soft nondistended nontender, left lower quadrant incision clean and dry, back dressings are clean and dry. Impression: Postop day 1. L2-5 oblique lumbar interbody fusion, patient clinically doing well, pain reasonably well controlled, plan will be for discharge home today as he is met criteria. Patient seen at bedside with Dr. Cárdenas
--- NOTE | 2023-11-29 09:35 | PHA.MEDREC ---
Pharmacy Consult ? Medication Reconciliation Pharmacy has completed the medication reconciliation. Reviewed med rec done by nurse, added in lidocaine 5% patches (after speaking to patient via operator prefinish).
--- NOTE | 2023-11-29 09:36 | PM.DS ---
DS: Providers Provider Date of Service: 11/28/23 Date of admission: 11/28/23 06:23 Date of discharge: 11/29/23 Primary care physician: Farida Cervantes MD Admitting clinician: Romel Cárdenas DS: Diagnosis Discharge Diagnosis (1) Lumbar spinal stenosis: Status: Acute DS: Summary Time Attestation Discharge coordination time: Less than 30 minutes Quality: Safe Use of Opioids Does Pt have an Active Cancer Diagnosis on the Problem List?: No Quality: Stroke Does the patient have a stroke diagnosis?: No Physical Exam Vital Signs: Vital Signs: Last Vital Signs Temp 97.9 F 11/29/23 07:46 Pulse 93 11/29/23 07:46 Resp 16 11/29/23 07:46 BP 155/67 H 11/29/23 07:46 Pulse Ox 95 11/29/23 07:46 O2 Del Method Room Air 11/29/23 07:46 O2 Flow Rate 2 11/28/23 12:38 BMI result Body Mass Index 22.8 Discharge Plan Discharge Anticipated Discharge Date/Time: 11/29/23 13:36 Patient Disposition: Home, Self-Care Discharge Diagnosis: Lumbar DDD Referrals: Farida Novoa MD [Primary Care Provider] - 1 Week Discharge Medications: New docusate sodium [Colace] 100 mg capsule 100 mg PO BID Qty: 20 0RF oxycodone 5 mg tablet See Rx Instructions .ROUTE .COMPLEX PRN (Reason: pain) Qty: 40 0RF Rx Instructions: 1-2 tabs po q 4 hours prn pain; Partial Fill upon patient request. Continued cholecalciferol (vitamin D3) [Vitamin D3] 50 mcg (2,000 unit) capsule 50 mcg PO QAM pravastatin 40 mg tablet 40 mg PO QPM gabapentin 600 mg tablet 600 mg PO TID latanoprost 0.005 % drops 1 drp BEDTIME baclofen 20 mg tablet 20 mg PO TID brimonidine 0.2 % drops 1 drp TID dorzolamide-timolol 22.3-6.8 mg/mL drops 1 drp BID lidocaine 5 % adhesive patch,medicated 1 patch topical DAILY PRN (Reason: Pain) cyclobenzaprine 5 mg tablet 5 mg PO TID PRN (Reason: muscle spams) amlodipine 5 mg tablet 5 mg PO QAM Discharge Orders: Discharge Order (Routine); Ordered 11/29/23 Ordered By: Augie Lewis Diet: Advance to usual diet Activity on Discharge: As tolerated Stand Alone Forms: Patient Portal Discharge page Activity Restrictions/Additional Instructions: After your spinal surgery we ask you to observe the following restrictions/guidelines: Activity: It is normal to feel some discomfort as you increase your activity, but that will improve with time. We ask you avoid heavy lifting or acitivities that cause pain. As a general rule, 8lbs is a safe limit for lifting right after surgery. Walk as much as you feel comfortable but not to exhaustion. You will feel extra tired the first few days after surgery. Stay well hydrated. It is OK to walk up and down stairs You may return to driving when you are off narcotics (such as vicodin, oxycodone, dilaudid, etc), and you are back to normal functional capacity. If you have any concerns please check with office before driving. Return to work is specific to each patient and each surgery, so please speak with your doctor/PA at first follow up. Please bring paperwork such as FMLA at that time if you need it filled out. Medications: For optimum pain control, it is best to start with a combination of 500 mg of Tylenol every 4 hours with 600 mg of Motrin every 8 hours, and use narcotics as needed in between for breakthrough pain. We will give you a short supply of narcotics after surgery (usually one weeks worth). If you need more please call the office but do not use more than prescribed. You will need to give our office 48 hours notice if you need narcotics refilled and we do not fill narcotics on weekends or evenings. If you are on a narcotic, it is a good idea to take a stool softener such as colace or senna to avoid constipation If you take blood thinner such as aspirin, Plavix, Coumadin, Effient, Eliquis etc for conditions such as Afib, DVT, Pulmonary embolus, coronary disease, stents etc please speak with your surgeon about specific details as to when you can resume these medications. You can resume NSAIDs on post op day 1 (eg: Motrin, Naproxen, etc). Follow up: Please call the office, , after surgery to arrange a 3 week follow up for wound check. Wound Care: You may remove your dressing on the first day after surgery. ?You may ?leave open to air. Please do not remove the steri strips underneath. they will fall off on their own in one week. IT IS NORMAL FOR THE WOUND TO OOZE OR BE BLOODY FOR A FEW DAYS AFTER SURGERY. ?IF THIS HAPPENS JUST PLACE NEW DRESSING OVER IT TO AVOID STAINING CLOTHES. You may shower on post op day # 1 We ask that you do not let the water soak the wound. If it does get wet, just towel dry lightly. Please do not scrub your incision or place any type of chemical/ointment on the wound. No tub baths, pools or jacuzzis for one month. If you have any leaking or redness from your wound, or fevers, please call office Care Plan Goals: Discharge home Health Concerns: None Plan of Treatment: Discharge home Assessment: Stable
--- NOTE | 2023-11-29 11:56 | HO.POSTANES ---
Post Anesthesia Evaluation Post Anesthesia Evaluation Date of Service: 11/29/23 Vital Signs: Vital Signs Temp Pulse Resp BP Pulse Ox O2 Del Method 11/29/23 07:46 97.9 F 93 16 155/67 H 95 Room Air 11/29/23 04:05 164/76 H 11/29/23 04:01 180/78 H 11/29/23 03:07 98.9 F 77 16 99 Anesthesia: General Endotracheal-GETA Mental Status: Awake Pain Control: Satisfactory Nausea/Vomiting: None Hydration: Adequate Anesthesia-Related Issues: No Anes. Related Issues
[2023-11-29 12:00] VITALS: BP 150/79; PULSE 68; RESP 16; TEMP 36.4; O2SAT 95
== END 2023-11-29 13:15 | disposition home or self-care (01) | DRG 304 ==
LOC: HO.SSSA 06:26 → HO.S3 12:24
PROVIDERS: Nurse Practitioner; Admitting Provider Neurological Surgery; PCP Internal Medicine; Visit Provider Neurological Surgery
PROC: 0SG10A0 Fusion of 2 or more Lumbar Vertebral Joints with Interbody Fusion Device, Anterior Approach, Anterior Column, Open Approach (ICD-10-PCS; principal; 2023-11-28 07:30)
DX: M51.36 Other intervertebral disc degeneration, lumbar region (principal); M41.56 Other secondary scoliosis, lumbar region; F17.210 Nicotine dependence, cigarettes, uncomplicated; Z71.6 Tobacco abuse counseling; Z79.899 Other long term (current) drug therapy
CPT/HCPCS: 36415; 80048; 85027; 86850; 86900; 86901; 93005; 97116; 97161; C1713; J0131; J0360; J0690; J1170; J1885; J2250; J2371; J2404; J2405; J2704; J3010; L8699

== ENCOUNTER → 2023-11-28 06:23 | Outpatient (BNV) | payer MEDICAID, SELFPAY | PROVIDERS: Admitting Provider Neurological Surgery; PCP Internal Medicine; Visit Provider Neurological Surgery | DX: M48.061 Spinal stenosis, lumbar region without neurogenic claudication (principal); Z48.89 Encounter for other specified surgical aftercare | CPT/HCPCS: 20930; 22558; 22585; 22612; 22614; 22842; 22853; 99024; 99499 ==

== ENCOUNTER 2023-12-07 09:15 | Outpatient (AMB) | payer MEDICAID, SELFPAY ==
--- NOTE | 2023-12-07 09:27 | A.SPINEOV_ITS ---
Intake Intake Visit Reasons: Wound leackage Intake Note: is here today for Wound Leakage. Melt Superintendant Required: No Allergies No Known Allergies Allergy (Verified 11/28/23 06:09) Assessment & Plan Assessment & Plan (1) S/P lumbar fusion: Code(s): Z98.1 - Arthrodesis status Plan Procedure: L2-3, L3-4 and L4-5 OLIF Jasmeet is a pleasant 58-year-old male who comes in today as a follow-up patient after having surgery last week. I called him yesterday as part of are normal call back routine post surgery and his niece reported some concerns regarding wound leakage, so he was seen promptly in the office today. On evaluation all of his incision sites are well approximated and closed. There is some sign of minimal serosanguineous leakage from 1 of the incision sites on the right. At this time it does not appear concerning, it is not warm, there is no erythema, n o edema, and no other signs of fluctuance or infection. Due to the patient's concern, and the presence of continued leakage just over 1 week from the surgery I will prophylactically put the patient on a 5 day course of doxycycline as a cellulitis prevention precaution. During this visit I also refilled the patient's oxycodone, and we discussed proper pain control with the use of acetaminophen which he has not been utilizing. I also sent in a prescription for this, as he reports he does not have any at home. I will follow-up with Jasmeet in 2 weeks in the clinic. Richie Cárdenas MD,PhD [facility] Medications: New doxycycline hyclate 100 mg PO BID 10 caps 0RF surgical prophylaxis 5 days acetaminophen 1,000 mg (2 x 500 mg) PO Q8H PRN 42 tabs 3RF severe pain (scale score 7-10) Changed From oxycodone 1-2 tabs po q 4 hours prn pain; Partial Fill upon patient request. 40 tabs 0RF pain To oxycodone 5 mg PO Q6-8H PRN 30 tabs 0RF severe pain (scale score 7-10) Coding Level of Care Code Global (50602) Diagnoses S/P lumbar fusion Z98.1
== END 2023-12-07 09:49 | disposition home or self-care (01) ==
PROVIDERS: PCP Internal Medicine; Visit Provider Physician Assistant
DX: Z98.1 Arthrodesis status (principal)
CPT/HCPCS: 99024

== ENCOUNTER → 2023-12-07 09:15 | Outpatient (BNVA) | payer MEDICAID, SELFPAY | PROVIDERS: PCP Internal Medicine; Visit Provider Physician Assistant | DX: Z98.1 Arthrodesis status (principal) | CPT/HCPCS: 99212 ==

== ENCOUNTER 2023-12-21 09:31 | Outpatient (AMB) | payer MEDICAID, SELFPAY ==
--- NOTE | 2023-12-21 09:32 | A.SPINEOV_ITS ---
Intake Intake Visit Reasons: 2nd post op Intake Note: Mr. Mirza is here for 2nd post op. Board Winder Required: No Allergies No Known Allergies Allergy (Verified 11/28/23 06:09) Assessment & Plan Assessment & Plan (1) S/P lumbar fusion: Code(s): Z98.1 - Arthrodesis status Plan Procedure: L2-3, L3-4 and L4-5 OLIF Jasmeet comes in today for his 1st postoperative visit. He reports he is satisfied with the surgery, however has had some difficulties with pain that radiates into his left anterior thigh. He is able to ambulate well and is able to climb stairs without much difficulty. He does state that he experiences tenderness and pain in his low back when he rises from a seated position. But he is also able to do this unassisted. We further discussed postoperative healing course, and I encouraged him to set a goal to walk 1/2 mi to 1 mi per day. He is agreeable to this. He did ask for something to help him sleep at night as he wakes up with pain 1-2 times per night. I told him that we have no problem refilling the oxycodone for him to take before bedtime. No new neurological deficits. Patient is able to ambulate well, rises from a seated position without difficulty. Incision sites are closed, well healing, with no signs of drainage. The incisions look much better than they did last time, and are healed over. No signs of leakage or edema. We will follow-up with the patient in 6 weeks for his 2nd postoperative visit. At that time we will get x-rays to review with the patient. Richie Cárdenas MD,PhD [facility] Medications: Changed From oxycodone 5 mg PO Q6-8H PRN 30 tabs 0RF severe pain (scale score 7-10) To oxycodone 5 mg PO BEDTIME PRN 14 tabs 0RF severe pain (scale score 7-10) Coding Level of Care Code Global (11247) Diagnoses S/P lumbar fusion Z98.1
== END 2023-12-21 09:46 | disposition home or self-care (01) ==
PROVIDERS: PCP Internal Medicine; Visit Provider Physician Assistant
DX: Z98.1 Arthrodesis status (principal)
CPT/HCPCS: 99024

== ENCOUNTER 2023-12-21 09:31 | Outpatient (REF) | payer MEDICAID, SELFPAY | END 2023-12-21 09:32 | disposition home or self-care (01) | LOC: HO.HOSX 09:31 | PROVIDERS: PCP Internal Medicine; Visit Provider Physician Assistant | DX: M54.50 Low back pain, unspecified (principal); Z47.89 Encounter for other orthopedic aftercare; Z98.1 Arthrodesis status; Z79.891 Long term (current) use of opiate analgesic | CPT/HCPCS: 99212 ==

== ENCOUNTER 2024-02-07 08:42 | Outpatient (REF) | payer MEDICAID, SELFPAY ==
--- NOTE | ~2024-02-07 | XR_ITS ---
EXAMINATION: XR LUMBOSACRAL SPINE WITH OBLIQUES CLINICAL INFORMATION: Arthrodesis status. COMPARISON: Fluoroscopic guidance in OR images of 11/28/2022. X-rays lumbar spine 08/31/2023. TECHNIQUE: AP, lateral neutral, flexion and extension views of the lumbar spine. FINDINGS: Dextroscoliosis of the lumbar spine. Degenerative changes at T12-L1 and L1-L2. Surgical clips overlie the right iliac bone. Posterior fusion with pedicular screws spanning L2-L5 levels with interbody devices. Hardware appears intact. Mild grade 1 retrolisthesis of L3 on L4 with flexion and extension. XR/XR lumbar spine 4V min IMPRESSION: 1. Posterior fusion with pedicular screws spanning L2-L5 levels with interbody devices. Hardware appears intact. 2. Mild grade 1 retrolisthesis of L3 on L4 with flexion and extension.
== END 2024-02-07 08:43 | disposition home or self-care (01) ==
LOC: HO.HOSX 08:42
PROVIDERS: PCP Internal Medicine; Visit Provider Physician Assistant
DX: Z98.1 Arthrodesis status (principal)
CPT/HCPCS: 72110; 99212

== ENCOUNTER 2024-02-07 08:42 | Outpatient (AMB) | payer MEDICAID, SELFPAY ==
--- NOTE | 2024-02-07 09:13 | HO.SPINEOV ---
Intake Visit Reasons: 2nd post op with Xray Intake Note: Mr. Mirza is here today for his 2nd post-op appointment. Impregnation Operator Required: Yes Impregnation Operator Name: Yosi Anna Allergies No Known Allergies Allergy (Verified 02/07/24 09:15) Assessment & Plan Assessment & Plan (1) S/P lumbar fusion: Code(s): Z98.1 - Arthrodesis status Category: Surgical Plan Procedure: L2-3, L3-4 and L4-5 OLIF Jasmeet comes in today for his 2nd postoperative visit. He reports that overall he is doing well, and reports no shooting pains into his left leg. He states his low back pain has significantly been reduced since surgery. He has almost no pain throughout the day and is able to ambulate well without significant issue. Unfortunately, he still has some pains at night and will periodically wake up with a feeling of soreness in his low back. Thankfully this is fleeting and he is able to get back to sleep. Other than this he reports no issues or concerns. No new neurological deficits. Patient is able to ambulate well, rises from a seated position without difficulty. Incision sites are closed and well healing. I would like to have Jasmeet come back to the office in 2 months for a subsequent evaluation. I encouraged him that his pain that he experiences throughout the night is likely result of his postoperative healing and should also continue to improve. If he has not feeling better by the next time I see him we discussed the possibility of sending him for physical therapy. Richie Cárdenas MD,PhD [facility] Orders: Orders XR lumbar spine 4V min Today Z98.1 - Arthrodesis status Coding Level of Care Code Global (50355) Diagnoses S/P lumbar fusion Z98.1
== END 2024-02-07 09:49 | disposition home or self-care (01) ==
PROVIDERS: PCP Internal Medicine; Visit Provider Physician Assistant
DX: Z98.1 Arthrodesis status (principal)
CPT/HCPCS: 99024

== ENCOUNTER 2024-07-08 08:19 | Outpatient (REF) | payer MEDICAID, SELFPAY ==
[2024-07-08 11:29] LABS: MANUAL DIFF FLAG NO
[2024-07-08 11:33] LABS: Basophils Absolute Auto 0.1 X10*3/uL (0.0-0.2); Basophils Percent Auto 0.9 % (0-2); Eosinophils Absolute Auto 0.1 X10*3/uL (0.0-0.4); Eosinophils Percent Auto 1.5 % (0-4); Hematocrit 40.6 % (42.0-52.0); Imm Gran Abs Auto 0.04 X10*3/uL (0.00-0.03); Imm Gran Pct Auto 0.4 % (0.0-0.4); Lymphocytes Absolute Auto 2.6 X10*3/uL (1.2-4.9); Lymphocytes Percent Auto 28.3 % (20-40); Mean Corpuscular Hemoglobin 26.9 pg (27.0-33.0); Mean Corpuscular Volume 83.9 fL (80.0-98.0); Mean Platelet Volume 10.4 fL (9.4-12.4); Monocytes Absolute Auto 0.8 X10*3/uL (0.1-1.2); Monocytes Percent Auto 8.9 % (2-11); Neutrophils Absolute Auto 5.4 x10*3/uL (2.0-8.3); Platelet Count 325 X10*3/uL (160-400); Red Blood Count 4.84 X10*6/uL (4.60-5.80); Red Cell Distribution Width 16.7 % (11.0-16.0); White Blood Count 9.1 X10*3/uL (4.8-10.8)
[2024-07-08 11:41] LABS: Estimated Average Glucose 114 mg/dL; Hemoglobin A1c % 5.6 % (<6.0); Total Hemoglobin (HGBA1C) 3286.3907 umol/L
[2024-07-08 12:12] LABS: Alanine Aminotransferase 8 U/L (0-40); Albumin Level 4.3 g/dL (3.5-5.0); Alkaline Phosphatase 129 U/L (39-117); Anion Gap 11 (12-20); Aspartate Amino Transferase 19 U/L (5-37); Bilirubin Direct 0.2 mg/dL (0.0-0.5); Bilirubin Total 0.3 mg/dL (0.0-1.0); Blood Urea Nitrogen 11 mg/dL (9-16); Calcium 9.5 mg/dL (8.4-10.2); Carbon Dioxide 24 mmol/L (22-29); Chloride 108 mmol/L (96-108); Cholesterol 177 mg/dL (<200); Estimated Glomerular Filt Rate > 60; Glucose Random 100 mg/dL (60-115); HDL Cholesterol 43 mg/dL (>40); LDL Cholesterol Calculated 118 mg/dL (<100); Potassium 4.1 mmol/L (3.3-5.1); Sodium 139 mmol/L (135-145); Total Protein 8.3 g/dL (6.5-8.0); Triglycerides 80 mg/dL (<150); Vitamin D 25-OH Total 27.7 ng/mL (>30)
[2024-07-11 16:13] LABS: TS Negative Control Passed; TS Panel A 0; TS Panel B 1; TS Positive Control Passed; TSpotTB Negative (Negative)
== END 2024-07-08 08:20 | disposition home or self-care (01) ==
LOC: HO.HHCL 08:19
PROVIDERS: Visit Provider Internal Medicine
DX: I10 Essential (primary) hypertension (principal); Z11.1 Encounter for screening for respiratory tuberculosis
CPT/HCPCS: 36415; 80048; 80061; 80076; 82306; 83036; 85025; 86481

== ENCOUNTER 2024-08-06 08:34 | Outpatient (REF) | payer MEDICAID, SELFPAY ==
[2024-08-06 12:32] LABS: Alanine Aminotransferase 11 U/L (0-40); Albumin Level 3.9 g/dL (3.5-5.0); Alkaline Phosphatase 120 U/L (39-117); Anion Gap 11 (12-20); Aspartate Amino Transferase 26 U/L (5-37); Bilirubin Total 0.1 mg/dL (0.0-1.0); Blood Urea Nitrogen 14 mg/dL (9-16); Calcium 9.3 mg/dL (8.4-10.2); Carbon Dioxide 22 mmol/L (22-29); Chloride 111 mmol/L (96-108); Estimated Glomerular Filt Rate > 60; Glucose Random 150 mg/dL (60-115); Iron 19 mcg/dL (45-160); Percent Iron Saturation 6 % (15-50); Sodium 140 mmol/L (135-145); Total Iron Binding Capacity 306 mcg/dL (228-428); Total Protein 7.2 g/dL (6.5-8.0); Unsaturated Iron Binding 287 ug/dL
[2024-08-06 12:35] LABS: Ferritin 10 ng/mL (20-250)
[2024-08-06 12:45] LABS: ~HepC Num1 11.06 S/CO (0.00-0.79); ~Hepatitis C Antibody Reactive (Nonreactive)
[2024-08-08 14:33] LABS: HCV Log PCR <1.18 NOT DETECTED Log IU/mL (NOT DETECTED); HepC Viral Load <15 NOT DETECTED IU/mL (NOT DETECTED)
== END 2024-08-06 08:35 | disposition home or self-care (01) ==
LOC: HO.HHCL 08:34
PROVIDERS: PCP Nurse Practitioner Family; Visit Provider Internal Medicine
DX: Z00.00 Encounter for general adult medical examination without abnormal findings (principal); D64.9 Anemia, unspecified; Z86.19 Personal history of other infectious and parasitic diseases
CPT/HCPCS: 36415; 80053; 82728; 83540; 86803; 87522

== ENCOUNTER 2024-08-08 08:41 | Outpatient (AMB) | payer MEDICAID, SELFPAY ==
--- NOTE | 2024-08-08 08:44 | A.OFFVIS_ITS ---
Vital Signs 08/08/24 08:45 Height 5 ft 4 in Weight 132 lb BMI 22.7 BP 134/59 L Blood Pressure Location Lt brachial Position Sitting Respiration 15 Pulse 52 Pulse Source Pulse Oximeter Pulse Oximetry (%) 99 Oxygen Delivery Method Room Air Intake Visit Reasons: Chronic bilateral low back pain Director Financial Services Required: Yes Director Financial Services Name: Lourdes Allergies No Known Allergies Allergy (Verified 08/08/24 08:47) Medication List - Last Reconciled 08/08/24 by [place] Huynh LPN acetaminophen 1,000 mg (2 x 500 mg) PO Q8H PRN amlodipine 5 mg PO QAM baclofen 20 mg PO TID brimonidine 0.2% 1 drp TID cholecalciferol (vitamin D3) (Vitamin D3) 50 mcg PO QAM cyclobenzaprine 5 mg PO TID PRN docusate sodium (Colace) 100 mg PO BID dorzolamide-timolol 22.3-6.8 mg/mL 1 drp BID doxycycline hyclate 100 mg PO BID 5 days gabapentin 600 mg PO TID latanoprost 0.005% 1 drp BEDTIME lidocaine 5% 1 patch topical DAILY PRN oxycodone 5 mg PO BEDTIME PRN pravastatin 40 mg PO QPM HPI HPI Chronic bilateral low back pain: Details: 58-year-old male who presents today to the office for a chronic bilateral low back pain. A certified process steward was present during the visit. He had L2-3, L3-4, and L4-5 discectomy, arthrodesis, and implantation cage through an anterolateral, retroperitoneal approach; posterior instrumented fusion L2-L5; and allograft with Dr. Cárdenas on 11/28/23.? He reports worsening of the pain after the surgery, and the pain is worse at night. The patient is localized in his lower back and does not radiate down to his leg. He had mild pain post-surgery, which was tolerable but started worsening. He has his own psychologist and can get psychology clearance. Past procedure: 04/25/23: Interlaminar epidural steroid injection, L2/3, Left parasaggital: Pain relief for 1 day before return of symptoms [facility] Medical History (Updated 08/27/24 @ 16:18 by Ephraim Avila MD) Arthritis Precordial chest pain Hx of hepatitis C Chronic pain of left knee Hypertension Surgical History (Updated 12/07/23 @ 09:41 by TATIANA Delgadillo) Status post laser cataract surgery of both eyes S/P appendectomy Social History Household Members: Family Household Members Other:: niece Housing: Apartment Are you a primary senior care provider to a significant other at home: No Do you presently have visiting nurse or other home services: No Alcohol intake: unknown Patient Tobacco Use Status: Current everyday Tobacco user Tobacco use type: Cigarette Cigarettes Per Day: 3 Years Smoked: 38 Substance Use Type: Marijuana service: No Current occupational status: unemployed Review of Systems Const All systems reviewed & are unremarkable except as noted in HPI and below Physical Exam Vital Signs: Last Vital Signs Pulse 52 08/08/24 08:45 Resp 15 08/08/24 08:45 BP 134/59 L 08/08/24 08:45 Pulse Ox 99 08/08/24 08:45 Oxygen Delivery Method Room Air 08/08/24 08:45 BMI result Body Mass Index 22.7 General: Appears afebrile. Alert and oriented. Mood and affect appropriate. Follows and participates in conversation appropriately. Respiratory effort is unlabored. Able to transition from sit to stand unassisted. Ambulates with bilaterally normal heel strike and toe off. Results Reviewed Results Reviewed: No imaging is available for review. Assessment & Plan Assessment & Plan (1) Post laminectomy syndrome: Code(s): M96.1 - Postlaminectomy syndrome, not elsewhere classified Category: Medical Plan Discussed spinal cord stimulator as a possible treatment option for his low back pain. Will place a referral for psychology clearance. Once we have received psychology clearance, we will plan for trial of spinal cord stimulator with Nevro device. The patient will receive a call from [facility] for the psychology assessment.? Once we get the letter for the clearance, then we will schedule the trial with a Digital H2O device. Scribed for Dr. Avila by Billy Adams, chief medical director, on 08/08/2024. I, Dr. Avila, have personally reviewed and agree with the information entered by the scribe. Coding Level of Care Code Est Pt Level 3 (77328) Diagnoses Post laminectomy syndrome M96.1
[2024-08-08 08:45] VITALS: BP 134/59; PULSE 52; RESP 15; O2SAT 99; BMI 22.7
== END 2024-08-08 09:18 | disposition home or self-care (01) ==
PROVIDERS: PCP Internal Medicine; Visit Provider Internal Medicine
DX: M96.1 Postlaminectomy syndrome, not elsewhere classified (principal)
CPT/HCPCS: 99213

== ENCOUNTER → 2024-08-08 08:41 | Outpatient (BNVA) | payer MEDICAID, SELFPAY | PROVIDERS: PCP Internal Medicine; Visit Provider Internal Medicine | DX: M96.1 Postlaminectomy syndrome, not elsewhere classified (principal) | CPT/HCPCS: 99212 ==

== ENCOUNTER 2024-10-31 08:49 | Outpatient (REF) | payer MEDICAID, SELFPAY ==
--- NOTE | ~2024-10-31 | CT_ITS ---
CLINICAL HISTORY: F17.210 - Nicotine dependence, cigarettes, uncomplicated CT lung cancer screening (LDCT) Comparison: None Technique: Axial CT images of the chest using low-dose technique. Referring provider counseled the patient on shared decision-making for LDCT screening. Additional counseling was provided on smoking cessation. Effective radiation dose total: DLP 42.3 mGycm, CTDIvol 1.1 mGy. Findings: Lung: Moderate emphysema. There are calcified granulomas. No pulmonary nodule is appreciated. Coronary artery calcifications: None Limited upper abdomen: Unremarkable Other: None Impression: LungRADS 1: Negative exam. Continue annual screening with low dose Chest CT in 12 months. ##L1# Category 1: Normal; continue annual screening Category 2: Benign appearance or behavior, continue annual screening Category 3: Probably benign, [address] recommended Category 4A: Suspicious, [address] recommended; may consider PET/CT Category 4B: Suspicious, Additional diagnostics and/or tissue sampling recommended Category 4X: Suspicious, Additional diagnostics and/or tissue sampling recommended Category 0: Recalls (incomplete screen due to Incomplete coverage, Noise, Respiratory motion, Expiration, Obscured by acute abnormality) This document has been electronically signed by: Blaine Chang MD on 10/31/2024 15:09:59
== END 2024-10-31 08:50 | disposition home or self-care (01) ==
LOC: HO.CT 08:49
PROVIDERS: PCP Internal Medicine; Visit Provider Physician Assistant Medical
DX: Z12.2 Encounter for screening for malignant neoplasm of respiratory organs (principal); F17.210 Nicotine dependence, cigarettes, uncomplicated
CPT/HCPCS: 71271

== ENCOUNTER → 2024-10-31 08:51 | Outpatient (BNV) | payer MEDICAID, SELFPAY | PROVIDERS: PCP Internal Medicine; Visit Provider Nuclear Medicine | DX: F17.210 Nicotine dependence, cigarettes, uncomplicated (principal) | CPT/HCPCS: 71271 ==

== ENCOUNTER 2025-01-03 21:48 | Emergency (ER) | payer MEDICAID, SELFPAY ==
--- NOTE | 2025-01-03 | ECG_ITS ---
Test Reason : right sided chest pain Blood Pressure : */* mmHG Vent. Rate : 72 BPM Atrial Rate : 72 BPM P-R Int : 150 ms QRS Dur : 98 ms QT Int : 392 ms P-R-T Axes : 83 73 66 degrees QTcB Int : 429 ms Normal sinus rhythm Normal ECG When compared with ECG of 13-Nov-2023 13:40, No significant change was found Referred By: Generic ED Physician Electronically Signed By: STARR WILLIS MD
--- NOTE | ~2025-01-03 | XR_ITS ---
CLINICAL HISTORY: chest pain, cough, sob 2 view chest x-ray Comparison: CT/SR - CT LUNG SCREENING - 10/31/24 09:24 EST Findings: Lung volumes are large. Lung apices are hyperlucent suggesting emphysema. Mild cardiomegaly. Partially visualized hardware at the thoracolumbar spine IMPRESSION: 1. No acute findings. This document has been electronically signed by: Kalpesh Solorzano MD on 01/03/2025 23:00:05
[2025-01-03 21:55] VITALS: BP 133/52; PULSE 81; RESP 18; TEMP 36.6; O2SAT 98; BMI 22.5
[2025-01-03 22:17] LABS: Hematocrit 34.1 % (42.0-52.0); Hemoglobin 11.3 g/dl (14.0-18.0); Mean Corpuscular HGB Conc 33.1 g/dl (31.0-36.0); Mean Corpuscular Hemoglobin 24.6 pg (27.0-33.0); Mean Corpuscular Volume 74.3 fL (80.0-98.0); Mean Platelet Volume 9.3 fL (9.4-12.4); Platelet Count 240 X10*3/uL (160-400); Red Blood Count 4.59 X10*6/uL (4.60-5.80); Red Cell Distribution Width 17.1 % (11.0-16.0); White Blood Count 10.4 X10*3/uL (4.8-10.8)
[2025-01-03 22:41] LABS: Alanine Aminotransferase 12 U/L (0-40); Alkaline Phosphatase 127 U/L (39-117); Anion Gap 12 (12-20); Aspartate Amino Transferase 20 U/L (5-37); Bilirubin Total 0.1 mg/dL (0.0-1.0); Blood Urea Nitrogen 11 mg/dL (9-16); Calcium 9.1 mg/dL (8.4-10.2); Carbon Dioxide 23 mmol/L (22-29); Chloride 107 mmol/L (96-108); Creatinine Clr Calc Pharmacy 68.5; Estimated Glomerular Filt Rate > 60; Glucose Random 129 mg/dL (60-115); Magnesium 2.2 mg/dL (1.6-2.6); Potassium 3.8 mmol/L (3.3-5.1); Sodium 138 mmol/L (135-145); Total Protein 8.1 g/dL (6.5-8.0)
[2025-01-03 22:48] LABS: Troponin-I High Sensitivity 16.6 ng/L (<3.5-35.0)
--- NOTE | 2025-01-04 01:37 | ED_ITS ---
HPI - Chest Pain General Chief Complaint: Chest Pain Stated Complaint: left side pain/worse when he coughs/hand cramps Time Seen by Provider: 01/04/25 01:33 Source: patient, family, RN notes reviewed and old records reviewed Mode of arrival: ambulatory Limitations: no limitations History of Present Illness ED Provider: Iraida HPI narrative: 59-year-old male past medical history significant for hypertension, tobacco dependence, chronic back pain, history of hepatitis-C presents for evaluation of chest pain. Patient reports a 3 day history of right-sided chest pain that radiates to his right shoulder. His pain is worse with movement, palpation or when he coughs He states that his hand has been cramping intermittently He denies any shortness of breath Denies any blood in his sputum He has no history of coronary artery disease, he has no history of DVT or PE No other complaints or concerns He denies leg swelling or recent travel Related Data Home Medications ?Medication ?Instructions ?Recorded ?Confirmed amlodipine 5 mg tablet 5 mg PO QAM 06/05/22 08/08/24 cyclobenzaprine 5 mg tablet 5 mg PO TID PRN muscle spams 06/05/22 08/08/24 baclofen 20 mg tablet 20 mg PO TID 11/13/23 08/08/24 brimonidine 0.2 % eye drops 1 drp TID 11/13/23 08/08/24 cholecalciferol (vitamin D3) 50 50 mcg PO QAM 11/13/23 08/08/24 mcg (2,000 unit) capsule (Vitamin D3) dorzolamide 22.3 mg-timolol 6.8 1 drp BID 11/13/23 08/08/24 mg/mL eye drops gabapentin 600 mg tablet 600 mg PO TID 11/13/23 08/08/24 latanoprost 0.005 % eye drops 1 drp BEDTIME 11/13/23 08/08/24 pravastatin 40 mg tablet 40 mg PO QPM 11/13/23 08/08/24 lidocaine 5 % topical patch 1 patch topical DAILY PRN Pain 11/29/23 08/08/24 Previous Rx's ?Medication ?Instructions ?Recorded docusate sodium 100 mg capsule 100 mg PO BID #20 caps 11/29/23 (Colace) acetaminophen 500 mg tablet 1,000 mg (2 x 500 mg) PO Q8H PRN 12/07/23 severe pain (scale score 7-10) #42 tabs doxycycline hyclate 100 mg capsule 100 mg PO BID surgical prophylaxis 12/07/23 5 days #10 caps oxycodone 5 mg tablet 5 mg PO BEDTIME PRN severe pain 12/21/23 (scale score 7-10) #14 tabs benzonatate 200 mg capsule 200 mg PO TID PRN cough #20 caps 01/04/25 cyclobenzaprine 10 mg tablet 10 mg PO TID PRN muscle spasm #20 01/04/25 tabs Allergies Allergy/AdvReac Type Severity Reaction Status Date / Time No Known Allergies Allergy Verified 01/03/25 21:58 Review of Systems 2 Constitutional: Constitutional: Denies body ache(s), Denies chills and Denies fever(s) Eyes: Eyes: Denies blurry vision ENT: Denies vertigo and Denies dizziness Cardiovascular: Cardiovascular: Reports chest pain and Denies dyspnea Respiratory: Respiratory: Reports cough, Reports pain on inspiration, Reports pain with cough and Denies dyspnea Gastrointestinal: Gastrointestinal: Denies abdominal pain, Denies nausea and Denies vomiting Musculoskeletal: Musculoskeletal: Denies back pain Integumentary/Breasts: Skin/Breast: Denies rash Neurologic: Denies vertigo and Denies dizziness Psychiatric: Psychiatric: Denies anxiety [facility] Past Medical History Medical History (Updated 01/04/25 @ 01:38 by Teddy Khoury) Nicotine dependence, cigarettes, uncomplicated Arthritis Precordial chest pain Hx of hepatitis C Chronic pain of left knee Hypertension Surgical History (Updated 09/18/24 @ 10:30 by Brianda Flor PA-C) S/P lumbar fusion History of appendectomy Status post laser cataract surgery of both eyes Social History Social History (Updated 10/31/24 @ 15:48 by Brianda Flor PA-C) Household Members: Family Household Members Other:: niece Housing: Apartment Are you a primary child care nurse to a significant other at home: No Do you presently have visiting nurse or other home services: No Alcohol intake: unknown Patient Tobacco Use Status: Current everyday Tobacco user Tobacco use type: Cigarette Cigarettes Per Day: 3 Years Smoked: onset 17, 1/2-1ppd x 42rs - 30pyh Substance Use Type: Marijuana service: No Current occupational status: unemployed Physical Exam 2 Vital Signs: Vital Signs: Last Vital Signs Temp 97.8 F 01/03/25 21:55 Pulse 81 01/03/25 21:55 Resp 18 01/03/25 21:55 BP 133/52 L 01/03/25 21:55 Pulse Ox 98 01/03/25 21:55 O2 Del Method Room Air 01/03/25 21:55 BMI result Body Mass Index 22.5 Const: General: healthy appearing, comfortable, no acute distress, alert and awake Nutritional Appearance: well nourished Orientation/consciousness: p atient oriented x3 HEENT: Head: Yes normocephalic and Yes atraumatic Eyes: Eyelids: Yes eyelids normal Conjunctivae: conjunctivae normal S clerae: sclerae normal Corneas: corneas normal Pupils: Equal, round and reactive pupils present EOM: EOMs intact bilaterally Neck: Neck: Yes full ROM Chest: Other: Right chest wall tenderness without crepitus Chest palpation & inspection: normal inspection of the chest and no crepitus Resp: Effort & Inspection: normal respiratory effort, able to speak in complete sentences, no audible wheezes and not labored Auscultation: clear to auscultation bilaterally Cardio: Rate: regular rate Rhythm: regular rhythm GI: Inspection: No distended Palpation (GI): Soft to palpation, not firm, nontender, no guarding and not rigid Skin: General skin exam: elasticity normal Neuro: General: patient oriented x3 Cranial nerves: Yes Equal, round and reactive pupils present and Yes Bilaterally intact EOM present Cognition (Neuro): normal cognition Medical Decision Making Medical Decision Making MDM Narrative: 59-year-old male presents for evaluation of chest pain. His pain is reproducible with palpation, worse with coughing or movement. History exam is most consistent with chest wall strain, less likely ACS. He did have an EKG that is normal sinus rhythm without evidence of ischemia compared to previous. Troponin within normal limits. He has had 3 days of chest pain, no indication to repeat a troponin. He rules out for ACS. Chest x-ray shows emphysematous changes, the patient is a smoker. No pneumonia or pleural effusions, he was not tachypneic, tachycardic, or hypoxic to suggest PE, no unilateral leg swelling either. We will treat the pain for musculoskeletal chest pain Differential Diagnosis Differential Diagnoses: The differential diagnosis associated with the presentation includes Chest pain Chest wall pain Costochondritis ACS less likely bronchitis Pneumonia Admission/Observation Consideration of admission/observation: Escalation of care including admission/observation considered Lab Data MDM Lab Attestation statement: I reviewed the patient's lab results. No leukocytosis. The patient has a mild anemia consistent with his most recent labs. Normal platelet count. This may be related to his known history hepatitis-C. No significant electrolyte abnormalities. Random glucose elevated to 129. The patient is not a diabetic, troponin within normal limits 01/03/25 22:09 01/03/25 22:09 Labs: Lab Results 01/03/25 Range/Units 22:09 WBC 10.4 (4.8-10.8) X10*3/uL RBC 4.59 L (4.60-5.80) X10*6/uL Hgb 11.3 L (14.0-18.0) g/dl Hct 34.1 L (42.0-52.0) % MCV 74.3 L (80.0-98.0) fL MCH 24.6 L (27.0-33.0) pg MCHC 33.1 (31.0-36.0) g/dl RDW 17.1 H (11.0-16.0) % Plt Count 240 D (160-400) X10*3/uL MPV 9.3 L (9.4-12.4) fL Absolute Nucleated RBC 0.000 (0.0-0.012) X10*3/uL Nucleated RBC % (auto) 0.0 (0.0-0.2) /100WBC Sodium 138 (135-145) mmol/L Potassium 3.8 (3.3-5.1) mmol/L Chloride 107 (96-108) mmol/L Carbon Dioxide 23 (22-29) mmol/L Anion Gap 12 (12-20) BUN 11 (9-16) mg/dL Creatinine 0.96 (0.5-1.4) mg/dL Estim Creat Clear Calc 68.5 Estimated GFR > 60 Random Glucose 129 H (60-115) mg/dL Calcium 9.1 (8.4-10.2) mg/dL Magnesium 2.2 (1.6-2.6) mg/dL Total Bilirubin 0.1 (0.0-1.0) mg/dL AST 20 (5-37) U/L ALT 12 (0-40) U/L Alkaline Phosphatase 127 H (39-117) U/L Troponin I High Sens 16.6 (<3.5-35.0) ng/L Total Protein 8.1 H (6.5-8.0) g/dL Albumin 4.0 (3.5-5.0) g/dL Independent Interpretation I performed an independent interpretation of an: EKG (Normal sinus rhythm with a rate of [address] segment changes) and Plain X-Ray Interpretation: Findings: Lung volumes are large. Lung apices are hyperlucent suggesting emphysema. Mild cardiomegaly. Partially visualized hardware at the thoracolumbar spine IMPRESSION: 1. No acute findings. This document has been electronically signed by: Kalpesh Solorzano MD on 01/03/2025 23:00:05 Discharge Plan Discharge Clinical Impression: Atypical chest pain Patient Disposition: Home, Self-Care Instructions: Chest Wall Pain (ED) Additional Instructions: Your workup in the ER today was reassuring. This includes your blood work, EKG, chest x-ray. Your pain is most likely related to a muscle strain. You may use benzonatate as needed for coughing. Use cyclobenzaprine as needed for muscle spasms. This may make you drowsy, do not drink alcohol or drive after taking it. You may also use ibuprofen and Tylenol for pain Prescriptions: New cyclobenzaprine 10 mg tablet 10 mg PO TID PRN (Reason: muscle spasm) Qty: 20 0RF benzonatate 200 mg capsule 200 mg PO TID PRN (Reason: cough) Qty: 20 0RF No Action cholecalciferol (vitamin D3) [Vitamin D3] 50 mcg (2,000 unit) capsule 50 mcg PO QAM pravastatin 40 mg tablet 40 mg PO QPM gabapentin 600 mg tablet 600 mg PO TID latanoprost 0.005 % drops 1 drp BEDTIME baclofen 20 mg tablet 20 mg PO TID brimonidine 0.2 % drops 1 drp TID dorzolamide-timolol 22.3-6.8 mg/mL drops 1 drp BID lidocaine 5 % adhesive patch,medicated 1 patch topical DAILY PRN (Reason: Pain) docusate sodium [Colace] 100 mg capsule 100 mg PO BID Qty: 20 0RF cyclobenzaprine 5 mg tablet 5 mg PO TID PRN (Reason: muscle spams) amlodipine 5 mg tablet 5 mg PO QAM doxycycline hyclate 100 mg capsule 100 mg PO BID 5 Days Qty: 10 0RF acetaminophen 500 mg tablet 1,000 mg PO Q8H PRN (Reason: severe pain (scale score 7-10)) Qty: 42 3RF oxycodone 5 mg tablet 5 mg PO BEDTIME PRN (Reason: severe pain (scale score 7-10)) Qty: 14 0RF Print Language: Swedish
[2025-01-04 01:45] VITALS: BP 100/51; PULSE 73; RESP 16; TEMP 37.2; O2SAT 98
[2025-01-04 02:00] VITALS: BP 100/51; PULSE 73; RESP 16; TEMP 37.2; O2SAT 98
== END 2025-01-04 02:00 | disposition home or self-care (01) ==
PROVIDERS: Emergency Provider Internal Medicine; PCP Internal Medicine
DX: R07.89 Other chest pain (principal); R05.9 Cough, unspecified; R06.02 Shortness of breath; I10 Essential (primary) hypertension; Z79.899 Other long term (current) drug therapy
CPT/HCPCS: 36415; 71046; 80053; 83735; 84484; 85027; 93005; 99283; 99284

== ENCOUNTER → 2025-01-03 22:02 | Outpatient (BNV) | payer MEDICAID, SELFPAY | PROVIDERS: Emergency Provider Internal Medicine; PCP Internal Medicine; Visit Provider Internal Medicine Cardiovascular Disease | DX: R07.9 Chest pain, unspecified (principal) | CPT/HCPCS: 93010 ==

== ENCOUNTER → 2025-01-03 22:17 | Outpatient (BNV) | payer MEDICAID, SELFPAY | PROVIDERS: PCP Internal Medicine; Visit Provider Radiology Diagnostic Radiology | DX: R07.9 Chest pain, unspecified (principal) | CPT/HCPCS: 71046 ==

== ENCOUNTER 2025-01-30 09:49 | Outpatient (AMB) | payer MEDICAID, SELFPAY ==
[2025-01-30 09:59] VITALS: BP 132/78; PULSE 70; O2SAT 98; BMI 22.9
--- NOTE | 2025-01-30 09:59 | A.OFFVIS_ITS ---
Vital Signs 01/30/25 09:59 Height 5 ft 4 in Weight 133 lb 6 oz BMI 22.9 BP 132/78 Blood Pressure Location Rt brachial Position Sitting Pulse 70 Pulse Source Pulse Oximeter Pulse Oximetry (%) 98 Oxygen Delivery Method Room Air Intake Visit Reasons: Anemia, [place] Screening. Intake Note: NEW PATIENT for initial colo screening, anemia. Chief Complaint; Pt denies any GI sx at this time. Docusate still working well for him. No hx of colo. No pertinent FMHx. Clerical Investigator Required: Yes Clerical Investigator Services: Clerical Investigator Offered & Declined Accompanied by: Family/Other Allergies No Known Allergies Allergy (Verified 01/30/25 09:59) HPI HPI Anemia, [place] Screening.: Details: 59 year old? male with past medical history of hypertension, lumbar spinal stenosis, status post laminectomy syndrome, hep C is here today for pre colonoscopy screening.? Patient was sent to us by his PCP.? This is his first colonoscopy screening.? Patient denies any gastrointestinal symptoms in the past or at present. History of anemia on iron supplement. Patient takes iron every other day. Patient is taking stool softeners and denies any problem with his bowels. Patient denies melena, hematochezia, unintentional weight loss or ribbon like stools.? Denies any personal or family history of gastrointestinal disease, colon polyps, or CRC.? Denies history of difficulty with sedation or anesthesia in the past.? Negative for history of sleep apnea.? Denies any history of cardiac, renal, pulmonary, or hepatic disease.?? Patient is not on any anticoagulation [facility] Medical History Nicotine dependence, cigarettes, uncomplicated Arthritis Precordial chest pain Hx of hepatitis C Chronic pain of left knee Hypertension Surgical History S/P lumbar fusion History of appendectomy Status post laser cataract surgery of both eyes Social History Household Members: Family Household Members Other:: niece Housing: Apartment Are you a primary animal care technician to a significant other at home: No Do you presently have visiting nurse or other home services: No Alcohol intake: unknown Patient Tobacco Use Status: Current everyday Tobacco user Tobacco use type: Cigarette Cigarettes Per Day: 3 Years Smoked: onset 17, 1/2-1ppd x 42rs - 30pyh Substance Use Type: Marijuana service: No Current occupational status: unemployed Review of Systems Const Denies weight gain and Denies weight loss ENT Reports no additional complaints, Denies dysphagia and Denies odynophagia Card Reports no additional complaints Resp Reports no additional complaints GI Denies abdominal pain, Denies belching, Denies melena, Denies bloating, Denies change in bowel habits, Denies dysphagia, Denies excessive flatus, Denies dyspepsia, Denies heartburn, Denies diarrhea, Denies loose stools, Denies nausea, Denies odynophagia and Denies vomiting Reports no additional complaints Musc Reports no additional complaints Neuro Reports no additional complaints Psych Reports no additional complaints Endo Reports no additional complaints Physical Exam Const General: healthy appearing, no acute distress and well developed Nutritional Appearance: well nourished Orientation/consciousness: patient oriented x3 Resp Effort & Inspection: normal respiratory effort, able to speak in complete sentences, no tracheal deviation and symmetric chest movement Auscultation: clear to auscultation bilaterally Cardio Rate: regular rate GI Inspection: Yes normal to inspection and No distended Palpation (GI): Soft to palpation, not firm, nontender and No hepatosplenomegaly present Auscultation: normal bowel sounds General: Yes no CVA tenderness Back/Spine/Pelvis Back: no CVA tenderness Skin General skin exam: elasticity normal, turgor normal and dry skin Neuro General: patient oriented x3 Psych Appearance: grossly normal Mental Status: mental status grossly normal Assessment & Plan Assessment & Plan (1) Screen for colon cancer: Code(s): Z12.11 - Encounter for screening for malignant neoplasm of colon Plan Patient denies any GI, cardiac or respiratory symptoms.? Denies any issues with anesthesia in the past.? Denies any history of sleep apnea.? ? Not on any anticoagulation therapy.? No family or personal history of colon cancer or polyps.? Patient denies melena, hematochezia, unintentional weight loss or ribbon like stools.? Discussed at length the pre-procedure,? prep, diet & medications as well as what to expect prior, during and after the procedure.?? Stressed the importance of good bowel prep.? Recommended the use of Vaseline or Calmoseptine OTC & baby wipes with bowel movements to promote comfort.? ?Patient verbalizes understanding and agrees to plan of care.? He was given the opportunity to ask questions and all questions answered.? We will see him after the procedure.? Medications: New bisacodyl (Dulcolax (bisacodyl)) take 4 tabs at noon the day before your colonoscopy 20 mg (4 x 5 mg) PO ONCE 1 day 4 tabs 0RF Z12.11 - Encounter for screening for malignant neoplasm of colon polyethylene glycol 3350 (Miralax) As directed by gastroenterology department at [facility] 238 grams PO ONCE 238 grams 0RF Z12.11 - Encounter for screening for malignant neoplasm of colon Coding Level of Care Code New Pt Level 3 (93884) Diagnoses Screen for colon cancer Z12.11 Time Spent (min) 40 Comment 30 minutes spent with patient and additional 10 minutes spent reviewing his records
--- OUTSIDE RECORDS SUMMARY | 2025-01-30 10:29 | XMS_ITS | Encounter Summary ---
Author Organization [employer] Address [address] [place] [address] Care Team Providers Care Hair Spring Cutter Name Role Phone Farida Novoa MD Primary Care Provide r Reason for Visit * Reason Comments Med Refill Encounter Details Date Type Department Care Team ([facility] st Contact Info) Description 04/03/2024 Refill [facility] [address] [place], [place] [phone] Farida Novoa MD [address] [place] [address] Low back pain at multiple sites Social History Tobacco Use Types Packs/Day Years Used Date Smoking Tobacco: Every Day Cigarettes Passive Smoke Exposure: Current Smokeless Tobacco: Never Depression Answer Date Recorded Patient Health Questionnaire-9 Score 0 12/14/2023 Patient Health Questionnaire-9 Score 0 12/14/2023 Last PHQ-9: Questionnaire Data Not on file 0 12/14/2023 Housing Stability Answer Date Recorded What is your housing situation today? I have markel grewal 12/14/[address] you li ve. Do you have problems with any of the following? None of the above 12/14/2023 Food Insecurity Answer Date Recorded Within the past 12 months, y ou worried that your food would run out before you got money to buy more: Never True 12/14/2023 Within the past 12 months,th e food you bought just didn't last and you didn't have enough money to get more: Never True 10/2023 Transportation Answer Date Recorded In the past 12 months, has l ack of transportation kept you from medical appts, meetings, work or from getting things needed for daily living? No 12/14/2023 Utilities Answer Date Recorded In the past 12 months, has t he electric, gas, oil or water company threatened to shut off services in your home? No 12/14/2023 Depression Answer Date Recorded Patient Health Questionnaire-2 Score 0 12/14/2023 Sex and Gender Information Value Date Recorded Sex Assigned at Male 08/14/2022 10:39 AM EDT Legal Sex Male 10:39 AM EDT Gender Identity Male 08/14/2022 10:39 AM EDT Sexual Orientation Straight 08/14/2022 10 :39 AM EDT documented as of this encounter Plan of Treatment Upcoming Encounters Date Type Department Care Team (Late st Contact Info) Description 04/06/2025 10:00 AM EDT Office Visit [facility] [address] [place] [address] Bairon, Kirsty, OD [address] [place], [place] [phone] documented as of this encounter Visit Diagnoses Diagnosis Low back pain at multiple sites documented in this encounter Additional Health Concerns Assessment Noted Time PHQ-9 Depression Total Score: 0 12/14/19 24 1:13 PM EST documented as of this encounter Care Teams Hair Spring Cutter Relationship Specialty Start Date End Date Farida Novoa MD [address] [place] [address] PCP - General Family Medicine 01/04/22 documented as of this encounter
--- OUTSIDE RECORDS SUMMARY | 2025-01-30 10:29 | XMS_ITS | Encounter Summary ---
Author Organization [employer] Address [address] [place] [address] Care Team Providers Care Double End Tenoner Operator Name Role Phone Farida Novoa MD Primary Care Provide r Reason for Visit * Reason Comments Med Refill Encounter Details Date Type Department Care Team ([facility] st Contact Info) Description 12/25/2023 Refill [facility] [address] [place], [place] [phone] Marleni Whitmore MD [address] [place], [place] [phone] Chronic bilateral low back pain with bilateral sciatica Social History Tobacco Use Types Packs/Day Years [...] Description 04/06/2025 10:00 AM EDT Office Visit [facility] OPT[facility] [address] [place], [place] [phone] Bairon, Kirsty, OD [address] [place], [place] [phone] documented as of this encounter Visit Diagnoses Diagnosis Chronic bilateral low back pain with bilateral sciatica documented in this encounter Additional Health Concerns Assessment Noted Time PHQ-9 Depression Total Score: 0 12/14/19 24 1:13 PM EST documented as of this encounter Care Teams Double End Tenoner Operator Relationship Specialty Start Date End Date Farida Novoa MD [address] [place], [place] [phone] PCP - General Family Medicine 01/04/22 documented as of this encounter
--- OUTSIDE RECORDS SUMMARY | 2025-01-30 10:29 | XMS_ITS | Encounter Summary ---
Author Organization [employer] Address [address] [place] [address] Care Team Providers Care Filter Bed Placer Name Role Phone Farida Novoa MD Primary Care Provide r Reason for Visit * Reason Comments Med Refill Encounter Details Date Type Department Care Team ([facility] Contact Info) Description 05/02/2023 Refill [facility] [address] [place] [address] Farida Novoa MD [address] [place] [address] Low back pain at multiple sites Social History Tobacco Use Types Packs/Day Years Used Date Smoking Tobacco: Every Day Cigarettes Smokeless Tobacco: Never Sex and Gender Information Value Date Recorded Sex Assigned at Male 08/14/2022 10:39 AM EDT Legal Sex Male 10:39 AM EDT Gender Identity Male 08/14/2022 10:39 AM EDT Sexual Orientation Straight 08/14/2022 10 :39 AM EDT documented as of this encounter Plan of Treatment Upcoming Encounters Date Type Department Care Team (Late Contact Info) Description 04/06/2025 10:00 AM EDT Office Visit [facility] OPTOM[facility] [address] [place], [place] [phone] Kirsty Waddell, DAMIEN [address] [place] [address] documented as of this encounter Visit Diagnoses Diagnosis Low back pain at multiple sites documented in this encounter Care Teams Filter Bed Placer Relationship Specialty Start Date End Date Fariad Novoa MD [address] [place] [address] PCP - General Family Medicine 01/04/22 documented as of this encounter
--- OUTSIDE RECORDS SUMMARY | 2025-01-30 10:29 | XMS_ITS | Encounter Summary ---
Author Organization [employer] Address [address] [facility] [address] [place] [address] Care Team Providers Care Ad Trafficker Name Role Phone Farida Novoa MD Primary Care Provide r Reason for Visit * Reason Comments Med Refill Encounter Details Date Type Department Care Team (Late Contact Info) Description 05/23/2023 Refill [facility] [address] [place] [address] Marleni Whitmore MD [address] [place] [address] Low back pain at multiple sites Social [...] Description 04/06/2025 10:00 AM EDT Office Visit [facility] [address] [place] [address] Kirsty Waddell OD [address] [place] [address] documented as of this encounter Visit Diagnoses Diagnosis Low back pain at multiple sites documented in this encounter Care Teams Ad Trafficker Relationship Specialty Start Date End Date Farida Novoa MD [address] [place] [address] PCP - General Family Medicine 01/04/22 documented as of this encounter
--- OUTSIDE RECORDS SUMMARY | 2025-01-30 10:29 | XMS_ITS | Encounter Summary ---
Author Organization [employer] Address [address] [facility] [address] [place] [address] Care Team Providers Care Hot Wound Spring Production Supervisor Name Role Phone Farida Novoa MD Primary Care Provide r Reason for Visit * Reason Comments Med Refill Encounter Details Date Type Department Care Team (Late Contact Info) Description 12/27/2022 Refill [facility] [address] [place] [address] Jacob Conn MD [address] [place] [address] Social History Tobacco Use Types Packs/Day Years [...] Description 04/06/2025 10:00 AM EDT Office Visit [facility] [address] [place] [address] Kirsty Waddell, OD [address] [place] [address] documented as of this encounter Visit Diagnoses Not on filedocumented in this encounter Care Teams Hot Wound [place] Production Supervisor Relationship Specialty Start Date End Date Farida Novoa MD [address] [place] [address] PCP - General Family Medicine 01/04/22 documented as of this encounter
--- OUTSIDE RECORDS SUMMARY | 2025-01-30 10:29 | XMS_ITS | Encounter Summary ---
Author Organization [employer] Address [address] [facility] [address] [place] [address] Care Team Providers Care Tentering Machine Off Bearer Name Role Phone Farida Novoa MD Primary Care Provide r Reason for Visit * Reason Comments Med Refill Encounter Details Date Type Department Care Team ([facility] st Contact Info) Description 12/19/[address] [facility] [address] [place], [place] [phone] Marleni Whitmore MD [address] [place], [place] [phone] Chronic bilateral low back pain with bilateral [...] 10:00 AM EDT Office Visit [facility] [address] [place], [place] [phone] Bairon, Kirsty, OD [address] [place], [place] [phone] documented as of this encounter Visit Diagnoses Diagnosis Chronic bilateral low back pain with bilateral sciatica documented in this encounter Additional Health Concerns Assessment Noted Time PHQ-9 Depression Total Score: 0 12/14/19 24 1:13 PM EST documented as of this encounter Care Teams Tentering Machine Off Bearer Relationship Specialty Start Date End Date Farida Novoa MD [address] [place], [place] [phone] PCP - General Family Medicine 01/04/22 documented as of this encounter
--- OUTSIDE RECORDS SUMMARY | 2025-01-30 10:29 | XMS_ITS | Encounter Summary ---
Author Organization [employer] Address [address] [facility] [address] [place] [address] Care Team Providers Care Sales And Marketing Vice President Name Role Phone Farida Novoa MD Primary Care Provide r Reason for Visit * Reason Comments Med Refill Encounter Details Date Type Department Care Team ([facility] st Contact Info) Description 01/18/2025 Refill [facility] [address] [place], [place] [phone] Marleni Whitmore MD [address] [place], [place] [phone] S/P lumbar fusion Social History Tobacco Use Types Packs/Day Years Used Date Smoking Tobacco: Every Day Cigarettes Passive Smoke Exposure: Current Smokeless Tobacco: Never Alcohol Use Standard Drinks/Week Comments Never 0 (1 standard drink = 0.6 oz pur e alcohol) Depression Answer Date Recorded Patient Health Questionnaire-9 [...] Description 04/06/2025 10:00 AM EDT Office Visit [facility] [address] [place] [address] Kirsty Waddell, OD [address] [place] [address] documented as of this encounter Visit Diagnoses Diagnosis S/P lumbar fusion Arthrodesis status documented in this encounter Additional Health Concerns Assessment Noted Time PHQ-9 Depression Total Score: 0 12/14/19 24 1:13 PM EST documented as of this encounter Care Teams Sales And Marketing Vice President Relationship Specialty Start Date End Date Farida Novoa MD [address] [place], [place] [phone] PCP - General Family Medicine 01/04/22 documented as of this encounter
--- OUTSIDE RECORDS SUMMARY | 2025-01-30 10:29 | XMS_ITS | Clinical Summary ---
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 4 Active oxyCODONE (Roxicodone) 5 MG immediate release tablet Take 1 tablet by mouth Every 6-8 hours as needed (pain). 4 Active amLODIPine (Norvasc) 5 MG tabletIndications :Essential hypertension Take 1 tablet (5 mg) by mouth Once per day. 90 tablet 3 4 Active cholecalciferol (D3 Super Strength) 50 MCG (2000 UT) capsuleIndication s:Vitamin D deficiency Take 1 capsule (50 mcg) by mouth in the morning. 90 capsule 1 4 Active Acetaminophen Extra Strength 500 MG tabletIndications :S/P lumbar fusion TAKE 2 TABLETS BY MOUTH EVERY 8 HOURS NEEDED FOR MILD PAIN FOR UP TO 10 DAYS 30 tablet 2 4 Active diclofenac sodium 3 % gelIndications:S/ P lumbar fusion APPLY TOPICALLY TO THE AFFECTED AREA(S) TWICE DAILY DIRECTED 100 g 2 5 Active ferrous sulfate 325 (65 Fe) MG EC tabletIndications :Iron deficiency anemia, unspecified iron deficiency anemia type TAKE 1 TABLET BY MOUTH EVERY OTHER DAY DO NOT BREAK, CRUSH, DISSOLVE OR CHEW 45 tablet 1 5 Active ascorbic acid (Vitamin C) 500 MG tabletIndications :Iron deficiency anemia, unspecified iron deficiency anemia type TAKE 1 TABLET BY MOUTH EVERY OTHER DAY WITH IRON SUPPLEMENT 45 tablet 1 5 Active ibuprofen 800 MG tabletIndications :S/P lumbar fusion TAKE 1 TABLET BY MOUTH EVERY 8 HOURS NEEDED FOR MILD PAIN 30 tablet 1 5 Active Active Problems Problem Noted Date Diagnosed Date Healthcare maintenance 07/04/2024 Assessment & Plan (08/02/2024 1:56 PM EDT): Encouraged completion of cologuard. Anticipatory guidance reviewed Encounter for screening for malignant neoplasm o f colon 07/04/2024 Assessment & Plan (08/02/2024 1:55 PM EDT): Cologuard ordered in March pt states will complete Tobacco use 07/04/2024 Assessment & Plan (08/02/2024 1:56 PM EDT): Greater than 30 pack years, low dose ct ordered Tuberculosis screening 07/03/2024 Hx of hepatitis C 07/03/2024 Lumbar radiculopathy 07/03/2024 Sciatica 07/03/2024 Sinus bradycardia 07/03/2024 Status post laser cataract surgery of both eyes 07/03/2024 Hypertension 07/03/2024 Assessment & Plan (08/02/2024 1:57 PM EDT): At goal continue current regimen S/P appendectomy 07/03/2024 Precordial chest pain 07/03/2024 Lumbar spinal stenosis 07/03/2024 S/P lumbar fusion 03/25/2024 Assessment & Plan (08/02/2024 1:55 PM EDT): Continue with exercise, outreach for flares Assessment & Plan (03/25/2024 10:07 AM EDT): I will prescribed robaxin, acetaminophen a diclofenac gel, I advise to follow up with specialists that did the procedure Colon cancer screening 03/25/2024 Spinal stenosis of lumbar region 12/14/2023 Assessment & Plan (12/14/2023 1:40 PM EST): S/p surgical intervention I will refill his oxycodone for 1 more week, he will f/u with surgery I extensibly advise to try to go down on medication to finally discontinue, patient tells me he has pending PT and that this is his plan Wounds looks good no discharge Chronic low back pain 09/21/2022 Assessment & Plan (07/03/2024 12:44 PM EDT): Pain medications PRN only F/u with pain management Assessment & Plan (03/22/2023 4:20 PM EDT): I increase his medication to gabapentin 600mg TID, and baclofen to 20mg TID I will get MRI results and contact pain management after I receive some input from them I(referral to neurosurgery?) Assessment & Plan (02/22/2023 10:57 AM EDT): Apply heat on affected area I discontinue tizinadine and nabumetone and I started him on acetaminophen arthritis and gabapentine 300mg Q 8rs I also prescribed baclofen I advise not to miss his appointment with pain management Chronic pain of left knee 09/21/2022 Essential hypertension 09/21/2022 Assessment & Plan (08/02/2024 1:55 PM EDT): At goal, continue current regimen Assessment & Plan (07/03/2024 12:44 PM EDT): Maintenance: BMP: up to date Lipid Panel: up to date ASCVD Risk: He qualifies for statins but patient did not tolerate them , he develops muscular pain every time he takes them - Aerobic exercise to reduce BP. Initial goal of 30 min walk 3-5x/week. Increase as tolerated. - low-sodium diet (goal: <2g/day) and heart healthy diet such as DASH to reduce BP and prevent ASCVD. - Home BP monitoring 1-2 x day with goal of <140/90. - Seek immediate medical attention for chest pain, palpitations, SOB, syncope, or sudden changes in mental status. - Do not change or discontinue current prescriptions without first consulting health care provider Assessment & Plan (03/25/2024 10:06 AM EDT): - Aerobic exercise to reduce BP. Initial goal of 30 min walk 3-5x/week. Increase as tolerated. - low-sodium diet (goal: <2g/day) and heart healthy diet such as DASH to reduce BP and prevent ASCVD. - Home BP monitoring 1-2 x day with goal of <140/90. - Seek immediate medical attention for chest pain, palpitations, SOB, syncope, or sudden changes in mental status. - Do not change or discontinue current prescriptions without first consulting health care provider Assessment & Plan (12/14/2023 1:40 PM EST): - Aerobic exercise to reduce BP. Initial goal of 30 min walk 3-5x/week. Increase as tolerated. - low-sodium diet (goal: <2g/day) and heart healthy diet such as DASH to reduce BP and prevent ASCVD. - Home BP monitoring 1-2 x day with goal of <140/90. - Seek immediate medical attention for chest pain, palpitations, SOB, syncope, or sudden changes in mental status. - Do not change or discontinue current prescriptions without first consulting health care provider Assessment & Plan (02/22/2023 10:55 AM EDT): Maintenance: BMP: ordered today Lipid Panel: ordered today I switch his atorvastatin to pravastatin due to intolerance to medication - Aerobic exercise to reduce BP. Initial goal of 30 min walk 3-5x/week. Increase as tolerated. - low-sodium diet (goal: <2g/day) and heart healthy diet such as DASH to reduce BP and prevent ASCVD. - Home BP monitoring 1-2 x day with goal of <140/90. - Seek immediate medical attention for chest pain, palpitations, SOB, syncope, or sudden changes in mental status. - Do not change or discontinue current prescriptions without first consulting health care provider History of appendectomy 09/21/2022 Precordial pain 09/21/2022 Syphilis 09/21/2022 Visual impairment 09/21/2022 Encounters Date Type Department Care Team Description 01/18/2025 Refill [facility] MEDICINE [address] [place] [address] Marleni Whitmore MD S/P lumbar fusion 01/03/2025 Orders Only GENERIC EXTERNAL DATA DEPARTMENT Provider, Generic External Data 12/26/2024 Population Health Risk Score [facility] (C[facility]) Department [address] [id number] Provider, Population Health Generic 11/18/2024 Refill [facility] MEDICINE [address] [place] [address] Farida Novoa MD Iron deficiency anemia, unspecified iron deficiency anemia type; S/P lumbar fusion from Last 3 Months Immunizations Name Administration Dates Next Due Hep B, adult 02/14/2022,01/16/2022 Social History Tobacco Use Types Packs/Day Years Used Date Smoking Tobacco: Every Day Cigarettes Passive Smoke Exposure: Current Smokeless Tobacco: Never Tobacco Cessation:Ready to Q uit: Not Asked; Counseling Given: Not Answered Alcohol Use Standard Drinks/Week Comments Never 0 (1 standard drink = 0.6 oz pur e alcohol) Depression Answer Date Recorded Patient Health Questionnaire-9 Score 0 12/14/2023 Patient Health Questionnaire-9 Score 0 12/14/2023 Last PHQ-9: Questionnaire Data Not on file 0 12/14/2023 Housing Stability Answer Date Recorded What is your housing situation today? I have markelchanda grewal 12/14/[address] you [...] Orientation Straight 08/14/2022 10 :39 AM EDT Last Filed Vital Signs Vital Sign Reading Time Taken Comments Blood Pressure 112/71 07/04/2024 1:51 PM EDT Pulse 75 07/04/2024 1:51 PM EDT Temperature 36.8 ??C (98.2 ??F) 07/04/2024 1:51 PM ED T Respiratory Rate 20 07/04/2024 1:51 PM EDT Oxygen Saturation 98% 07/04/2024 1:51 PM EDT Inhaled Oxygen Concentration - - Weight 59.1 kg (130 lb 6.4 oz) 07/04/2024 1:51 P M EDT Height 162.6 cm (5' 4 ) 07/04/2024 1:51 PM EDT Body Mass Index 22.38 07/04/2024 1:51 PM EDT Plan of Treatment Upcoming Encounters Date Type Department Care Team (Late st Contact Info) Description 04/06/2025 10:00 AM EDT Office Visit [facility] OPTOMETRY [address] [place] [address] Bairon, Kirsty, OD [address] [place] [address] Health Maintenance Due Date Last Done Comments CT Colonography 1965 Colonoscopy 1965 Colorectal Cancer Screening 1965 FIT DNA/Cologuard 1965 FIT 1965 FOBT 1965 Sigmoidoscopy 1965 DTaP/Tdap/Td Vaccines (1 - Tdap) 1983 Hepatitis A Vaccines (1 of 2 - Risk 2-dose series) 1983 Pneumococcal Vaccine: 50+ Years (1 of 2 - PCV) 1983 Zoster Vaccines (1 of 2) 2014 Hepatitis B Vaccines (3 of 3 - Risk 3-dose series) 07/18/2022 02/14/2022, 01/16/2022 COVID-19 Vaccine (1 - 2023-2 5 season) 2024 Influenza Vaccine (#1) 2024 RSV Patients and Patients Aged 60 years or older (1 - Risk 60-74 years 1-dose series) 2024 Depression Screening 12/13/2024 12/14/2023, 12/14/2023 SDOH Screening 12/13/2024 12/14/2023 Alcohol/Substance Use Screening 07/04/2025 07/04/2024 Tobacco Screening 07/04/2025 07/04/2024 Lipid Panel 07/08/2029 07/08/2024, 01/09/2022 HIV Screening Completed 01/09/2022 HIB Vaccines Aged Out No longer eligi ble based on patient's age to complete this topic HPV Vaccines Aged Out No longer eligi ble based on patient's age to complete this topic IPV Vaccines Aged Out No longer eligi ble based on patient's age to complete this topic Meningococcal Vaccine Aged Out No morena memo eligible based on patient's age to complete this topic RSV under 20 months Aged Out No longe r eligible based on patient's age to complete this topic Rotavirus Vaccines Aged Out No longer eligible based on patient's age to complete this topic Procedures Procedure Name Priority Date/Time Associated Diagnosis Comments XR CHEST 2 VIEWS Routine 01/03/2025 11:0 0 PM EDT CBC Routine 01/03/2025 10:09 PM EDT HIGH SENSITIVITY TROPONIN I Routine 01/03/2025 10:09 PM EDT MAGNESIUM Routine 01/03/2025 10:09 PM EDT COMPREHENSIVE METABOLIC PANEL Routine 01/03/2025 10:09 PM EDT LIPID PANEL, STANDARD Routine 07/08/2024 8:24 AM EDT Essential hypertension HIV 1/2 ANTIGEN/ANTIBODY, FOURTH GENERATION W/RFL Routine 01/09/2022 10:06 AM EDT from Last 3 Months or Most Recently Relevant to Health Maintenance Results * XR Chest 2 Views (01/03/2025 11:00 PM EDT) Anatomical Region Laterality Modality Chest Radiographic [place] ging 01/03/2025 11:0 0 PM EDT Narrative 01/03/2025 11:01 PM EDT ? [facility] ?[address] ?[place] [address] ?XRay Report ? Signed ? Patient: Mirza,Jasmeet ?MR#: [id number] ? : 1965 ?Acct:[id number] ? Age/Sex: 59 / M ?ADM Date: 01/03/25 ? Loc: HO.ED ? Attending Dr: ? Ordering Physician: Generic ED Physician ?? Date of Service: 01/03/25 ?? Procedure(s): XR chest 2V ?? Accession Number(s): [id number] ? cc: Farida Novoa MD; Generic ED Physician ? CLINICAL HISTORY: chest pain, cough, sob ? 2 view chest x-ray ? Comparison: CT/SR - CT LUNG SCREENING - 10/31/24 09:24 EST ? Findings: ?? Lung volumes are large. Lung apices are hyperlucent suggesting emphysema. ?? Mild cardiomegaly. ?? Partially visualized hardware at the thoracolumbar spine ? IMPRESSION: ?? 1. No acute findings. ? This document has been electronically signed by: Kalpesh Solorzano MD on ?? 01/03/2025 23:00:05 ? Dictated By: ?Kalpesh Solorzano MD ? Signed By: ?<Electronically signed by Kalpesh Solorzano MD in OV> ? 01/03/25 2301 ? DD/ 2300 ? TD/TT: 01/03/25 2300 ? Parts Technician: ? Procedure Note Sona, Juany - 01/03/[address] [address] XRay Report Signed Patient: Tiffany Mirza#: [id number] : 1965Acct:[id number] Age/Sex: 59 / MADM Date: 01/03/25 Loc: .ED Attending Dr: Ordering Physician: Generic ED Physician Date of Service: 01/03/25 Procedure(s): XR chest 2V Accession Number(s): [id number] cc: Farida Novoa MD; Generic ED Physician CLINICAL HISTORY: chest pain, cough, sob 2 view chest x-ray Comparison: CT/SR - CT LUNG SCREENING - 10/31/24 09:24 EST Findings: Lung volumes are large. Lung apices are hyperlucent suggesting emphysema. Mild cardiomegaly. Partially visualized hardware at the thoracolumbar spine IMPRESSION: 1. No acute findings. This document has been electronically signed by: Kalpesh Solorzano MD on 01/03/2025 23:00:05 Dictated By: Kalpesh Solorzano MD Signed By: <Electronically signed by Kalpesh Solorzano MD in OV> 01/03/252300 DD/ 99 TD/TT: 01/03/252299 Parts Technician: [facility] External Provider IMG XR PROCEDURES Final Result * High Sensitivity Troponin I (01/03/2025 10:09 PM EDT) TROPONIN I HIGH SENSITIVITY 16.6 <3.5 - 35.0 ng/L [facility] Comment:The Moyer high sens itivity Troponin-I results should beused in conjunction with other diagnostic information suchas ECG, clinical observations and information, and patientsymptoms to aid in the diagnosis of TN. 01/03/2025 10:0 9 PM EDT 01/03/2025 10:12 PM EDT Generic External Data Provider LAB BLOOD ORDERAB LES Final Result [facility] [address] [place] [phone] * (ABNORMAL) CBC (01/03/2025 10:09 PM EDT) White Blood Count 10.4 4.8 - 10.8 X10*3/uL [facility] Red Blood Count 4.59(L) 4.60 - 5.80 X10*6/uL [facility] Hemoglobin 11.3(L) 14.0 - 18.0 g/dl [facility] Hematocrit 34.1(L) 42.0 - 52.0 % [facility] Mean Corpuscular Volume 74.3(L) 80.0 - 98.0 fL [facility] Mean Corpuscular Hemoglobin 24.6(L) 27.0 - 33.0 pg [facility] Mean Corpuscular HGB Conc 33.1 31.0 - 36.0 g/dl [facility] Red Cell Distribution Width 17.1(H) 11.0 - 16.0 % [facility] Platelet Count 240 160 - 400 X10*3/uL [facility] Mean Platelet Volume 9.3(L) 9.4 - 12.4 fL [facility] NRBC Pct Auto 0.0 0.0 - 0.2 /100WBC [facility] NRBC Abs Auto 0.000 0.0 - 0.012 X10*3/uL [facility] 01/03/2025 10:0 9 PM EDT 01/03/2025 10:12 PM EDT us Generic External Data Provider LAB BLOOD ORDERAB LES Final Result [facility] [address] [place] [address] [phone] * Magnesium (01/03/2025 10:09 PM EDT) Magnesium 2.2 1.6 - 2.6 mg/dL [facility] 01/03/2025 10:0 9 PM EDT 01/03/2025 10:12 PM EDT us Generic External Data Provider LAB BLOOD ORDERAB LES Final Result [facility] [address] [place] [phone] [phone] * (ABNORMAL) Comprehensive Metabolic Panel (01/03/2025 10:09 PM EDT) Sodium 138 135 - 145 mmol/L [facility] Potassium 3.8 3.3 - 5.1 mmol/L [facility] Chloride 107 96 - 108 mmol/L [facility] Carbon Dioxide 23 22 - 29 mmol/L [facility] Anion Gap 12 12 - 20 [facility] Urea Nitrogen (BUN) 11 9 - 16 mg/dL [facility] Creatinine, Serum 0.96 0.5 - 1.4 mg/dL [facility] Creatinine Clr Calc Pharmacy 68.5 [facility] Comment:eGFR (calculated fro m the MDRD study equation) and eCrCl(calculated from the Cockcroft-Gault equation) are based ondifferent parameters and may not yield comparable results.If eCrCl result is absurd, please check patient'sheight/weight. Estimated Glomerular Filt Rate >60 [facility] Comment:Chronic Kidney Disea se: Estimated GFR < 60 mL/min/[id number] Kidney Disease: Estimated GFR < 15 mL/min/1.73m2 Glucose 129(H) 60 - 115 mg/dL [facility] Calcium 9.1 8.4 - 10.2 mg/dL [facility] Bilirubin, Total 0.1 0.0 - 1.0 mg/dL [facility] Aspartate Amino Transferase 20 5 - 37 U/L [facility] Alanine Aminotransferase 12 0 - 40 U/L [facility] Total Protein 8.1(H) 6.5 - 8.0 g/dL [facility] Albumin Level 4.0 3.5 - 5.0 g/dL [facility] Alkaline Phosphatase 127(H) 39 - 117 U/L [facility] 01/03/2025 10:0 9 PM EDT 01/03/2025 10:12 PM EDT us Generic External Data Provider LAB BLOOD ORDERAB LES Final Result Performing Organization Address [facility]/ZIP Co de Phone Number [facility] [address] [place] [address] [phone] * (ABNORMAL) Lipid Panel, Standard (07/08/2024 8:24 AM EDT) Triglycerides 80 <150 mg/dL [facility] Comment:Desirable Triglyceri de: less than 150 mg/dLBorderline High Triglyceride 150-199 mg/dLHigh Triglyceride: 200-499 mg/dLVery High Triglyceride: greater than or equal to 5OO mg/dL Cholesterol 177 <200 mg/dL [facility] Comment:Desirable Cholestero l: less than 200 mg/dLBorderline High Cholesterol: 200-239 mg/dLHigh Cholesterol: greater than 239 mg/dL LDL Cholesterol Calculated 118(H) <100 mg/dL [facility] Comment:Desirable LDL: less than 100 mg/dLNear Optimal/Above Optimal LDL: 110- 129 mg/dLBorderline High LDL: 130-159 mg/dLHigh LDL: 160-189 mg/dLVery High LDL: greater than or equal to 190 mg/dL HDL Cholesterol 43 >40 mg/dL [facility] Comment:Desirable HDL: great er than 40 mg/dL Note: This HDL assay may give artificially low results in patients with liver disease. Blood Venous blood specimen / Unknown 07/08/2024 8:24 AM EDT 07/08/2024 11:27 AM EDT us Farida Cervantes MD LAB BLOOD ORDERABLES Final Result Performing Organization Address [facility]/ZIP Co de Phone Number [facility] [address] [place] [phone] * HIV 1/2 ANTIGEN/ANTIBODY,FOURTH GENERATION W/RFL (01/09/2022 10:06 AM EDT) HIV-1/2 ANTIGEN AND ANTIBODIES, 4TH GENERATION W/ REFLEX NON-REACT MIRTA NON-REACT MIRTA [facility] Comment: HIV-1 antigen and HIV-1/HIV-2 antibodies were not detected. There is no laboratory evidence of HIV infection. ?? PLEASE NOTE: This information has been disclosed to you from records whose confidentiality may be protected by state law. ??If your state requires such protection, then the state law prohibits you from making any further disclosure of the information without the specific written consent of the person to whom it pertains, or as otherwise permitted by law. A general authorization for the release of medical or other information is NOT sufficient for this purpose. ? For additional information please refer to http://education.Emotify/faq/NOY148 (This link is being provided for informational/ educational purposes only.) ? The performance of this assay has not been clinically validated in patients less than 2 years old. ?? 01/09/2022 10:0 6 AM EDT Farida Cervantes MD LAB BLOOD ORDERABLES Final Result [facility] Anywhere [address] from Last 3 Months or Most Recently Relevant to Health Maintenance Insurance [address] [place] [address] [facility] Care Teams Pressing Department Supervisor Relationship Specialty Start Date End Date Farida Novoa MD [address] [place] [phone] PCP - General Family Medicine 01/04/22
== END 2025-01-30 10:36 | disposition home or self-care (01) ==
PROVIDERS: PCP Internal Medicine; Visit Provider Nurse Practitioner Family
DX: Z01.818 Encounter for other preprocedural examination (principal); Z12.11 Encounter for screening for malignant neoplasm of colon; D50.9 Iron deficiency anemia, unspecified
CPT/HCPCS: 99202

== ENCOUNTER → 2025-01-30 09:49 | Outpatient (BNVA) | payer MEDICAID, SELFPAY | PROVIDERS: PCP Internal Medicine; Visit Provider Nurse Practitioner Family | DX: Z12.11 Encounter for screening for malignant neoplasm of colon (principal) | CPT/HCPCS: 99212 ==